=== PATIENT | male | born 1980 | race Hispanic/Latino ===

== ENCOUNTER 2019-03-30 11:38 | Emergency (ER) | payer SELFPAY ==
[2019-03-30 11:44] VITALS: BP 123/84; PULSE 75; RESP 20; TEMP 36.6; O2SAT 100; BMI 27.1
[2019-03-30 13:30] VITALS: BP 99/69; PULSE 67; RESP 15; O2SAT 100
--- NOTE | 2019-03-30 13:49 | ED.MALEGU ---
HPI - Male Genitourinary General Chief complaint: Urogenital-Male Stated complaint: ABDOMINAL PAIN AND FREQUENT URINATION Time Seen by Provider: 03/30/19 13:49 Source: patient Mode of arrival: ambulatory Limitations: no limitations History of Present Illness HPI Narrative: This is a 39-year-old male comes in with complaint of abdominal pain, penile pain and testicular pain is been going on off for 18 years. Patient states that he has a little bit of flank pain. It also runs up to his chest sometimes. He states he of times he feels little fevers or chills. He has had nausea this morning. He made himself throw up once and it was yellow in coloration. He has had normal bowel movements. No black or bloody stools. He has had some dysuria urgency and frequency with small amounts. Patient states that he has had a little bit a rash. He has been STDs within the last month and told he had genital herpes. I states everything else was negative. He has had CT scans as well as colonoscopy and cystoscopy at least twice in the last 18 years which were negative. The most recent were about for 5 years ago. Patient states that the pain is always present but is a little bit worse recently. Most recently he was seen at to counts include [facility] beds at the [facility] for similar symptoms. He denies other medical problems. He is not currently on medications. He states he used to drink alcohol excessively but quick about 6 years ago. He does smoke marijuana. He denies any tobacco. Patient has history of radha in his left femur, surgical repair of his left forearm and states that he had fractures to his back in the past. Related Data Previous Rx's Medication Instructions Recorded ketoconazole 1 applictn TOP BID #15 gram 03/30/19 Review of Systems Review of Systems ROS Unobtainable: All systems reviewed & are unremarkable except as noted in HPI and below Constitutional Denies chills and Denies fever(s) Cardiovascular Denies chest pain and Denies dyspnea Respiratory Denies chest congestion, Denies cough, Denies dyspnea and Denies wheezing Gastrointestinal Gastrointestinal: Denies abdominal pain, Denies change in bowel habits, Denies constipation, Denies heartburn, Denies diarrhea, Reports nausea and Reports vomiting (x1, made himself throw up.) Genitourinary Denies as per HPI, Denies hematuria, Reports difficulty urinating, Reports genital pain, Reports dysuria, Denies flank pain, Denies penile discharge, Denies scrotal swelling, Denies testicular mass, Reports testicular pain, Reports urinary frequency, Denies urinary hesitancy, Denies urinary incontinence and Reports urinary urgency Musculoskeletal Denies back pain Integumentary/Breasts Reports erythema (testicles, end of penis) Allergic/Immunologic Denies wheezing PFSH Social History Smoking Status: Never smoker Social History (Updated 03/30/19 @ 14:05 by Corrine Valdivia DO) Smoking Status: Never smoker alcohol intake: former substance use type: marijuana Exam Narrative Exam Narrative: GEN: well nourished, well appearing male, alert and oriented x 3, patient appears to be in mild distress. HEENT: Atraumatic, pupils are equal round reactive to light, extraocular movements are intact, nares are clear. HEART: Regular rate and rhythm without murmur, clicks, rubs. LUNGS:Lungs clear to auscultation, no wheezes, rales, crackles, chest moves symmetrically ABD:bowel sounds normal, soft, non-tender, no guarding, rebound, rigidity, no masses noted, no hepatosplenomegaly :No CVA tenderness, Male: normal external examination except for a little bit of ulceration at the opening of the urethra, testicles are slightly erythematous, no penile discharge or lesions, testicles non-tender, cremasteric reflex intact, no inguinal hernias noted. MSCL: Non-tender, no muscle atrophy, normal range of motion. Normal gait. NEURO:CN 2-12 intact, sensation normal Initial Vital Signs Initial Vital Signs: Vital Signs Temperature 97.9 F 03/30/19 11:44 Pulse Rate 75 03/30/19 11:44 Respiratory Rate 20 03/30/19 11:44 Blood Pressure 123/84 03/30/19 11:44 Pulse Oximetry 100 03/30/19 11:44 Course Orders Ordered: ED Orders 03/30/19 13:00 Urinalysis and Microscopic Stat 03/30/19 13:30 Complete Blood Count AUTO DIFF Stat Comprehensive Metabolic Panel Stat Lipase Stat Partial Thromboplastin Time Stat Prothrombin Time INR Stat 03/30/19 13:59 US abdomen complete Stat 03/30/19 14:53 EKG-12 Lead Stat Vital Signs - 8 hr 03/30/19 11:44 03/30/19 13:30 03/30/19 14:33 Temperature 97.9 F Pulse Rate 75 67 60 Respiratory Rate 20 15 16 Blood Pressure 123/84 Blood Pressure [Right Arm] 99/69 99/70 Pulse Oximetry 100 100 99 MDM - Male Genitourinary Lab Data Attestation: I reviewed the patient's lab results. Result diagrams: 03/30/19 13:30 03/30/19 13:30 Lab Results 03/30/19 03/30/19 03/30/19 Range/Units 13:00 13:30 13:30 WBC 5.8 (4.5-11.0) X10^3/uL RBC 5.28 (4.5-5.9) X10^6/uL Hgb 15.8 (13.5-17.5) g/dL Hct 46.0 (41-53) % MCV 87.0 (80-100) fL MCH 30.0 (26-34) PG MCHC 34.5 (30-36) % RDW 13.4 (11.6-14.8) % Plt Count 244 (150-400) X10^3/uL Neut % (Auto) 51.1 (50-75) % Lymph % (Auto) 39.0 (25-40) % [place] % (Auto) 7.4 (3-14) % Eos % (Auto) 1.6 L (2-4) % Baso % (Auto) 0.9 (0-2) % Neut # (Auto) 3000 (9450-6707) /uL Lymph # (Auto) 2300 (4752-6132) /uL [place] # (Auto) 400 (0-900) /uL Eos # (Auto) 100 (0-450) /uL Baso # (Auto) 100 (0-100) /uL PT 11.5 (10.1-12.7) SECONDS INR 1.0 (0.9-1.3) APTT 29 (26.4-36.2) SECONDS Sodium (137-145) mmol/L Potassium (3.4-5.1) mmol/L Chloride (98-107) mmol/L Carbon Dioxide (22-32) mmol/L BUN (9-20) mg/dL Creatinine (0.66-1.25) mg/dL Estimated GFR (>60) mL/min BUN/Creatinine Ratio (6-22) Glucose (70-100) mg/dL Calcium (8.4-10.2) mg/dL Total Bilirubin (0.2-1.3) mg/dL AST (17-59) IU/L ALT (21-72) IU/L Alkaline Phosphatase (38-126) U/L Total Protein (6.3-8.2) g/dL Albumin (3.5-5.0) g/dL Globulin (1.7-4.1) g/dL Albumin/Globulin Ratio (1.0-2.8) Lipase (23-300) U/L Urine Color Yellow Urine Appearance Clear Urine pH 7.5 (4.5-8.0) Ur Specific [place] 1.015 (1.000-1.035) Urine Protein Negative (Negative) Urine Glucose (UA) Negative (Negative) g/dL Urine Ketones Negative (NEGATIVE) Urine Occult Blood Negative (Negative) Urine Nitrate Negative (Negative) Urine Bilirubin Negative (NEGATIVE) Urine Urobilinogen 0.2 (0.2) E.U./dL Ur Leukocyte Esterase Negative (NEGATIVE) Urine RBC None seen (0-5/HPF) Urine WBC None seen (0-5/HPF) Urine Bacteria None seen (None) Ur Culture Indicated? Cult not indicated Micro UA Comment Microscopic normal 03/30/19 Range/Units 13:30 WBC (4.5-11.0) X10^3/uL RBC (4.5-5.9) X10^6/uL Hgb (13.5-17.5) g/dL Hct (41-53) % MCV (80-100) fL MCH (26-34) PG MCHC (30-36) % RDW (11.6-14.8) % Plt Count (150-400) X10^3/uL Neut % (Auto) (50-75) % Lymph % (Auto) (25-40) % [place] % (Auto) (3-14) % Eos % (Auto) (2-4) % Baso % (Auto) (0-2) % Neut # (Auto) (8811-1123) /uL Lymph # (Auto) (4211-8469) /uL [place] # (Auto) (0-900) /uL Eos # (Auto) (0-450) /uL Baso # (Auto) (0-100) /uL PT (10.1-12.7) SECONDS INR (0.9-1.3) APTT (26.4-36.2) SECONDS Sodium 142 (137-145) mmol/L Potassium 3.8 (3.4-5.1) mmol/L Chloride 107 (98-107) mmol/L Carbon Dioxide 25 (22-32) mmol/L BUN 13 (9-20) mg/dL Creatinine 0.70 (0.66-1.25) mg/dL Estimated GFR > 60.0 (>60) mL/min BUN/Creatinine Ratio 18.6 (6-22) Glucose 87 (70-100) mg/dL Calcium 9.4 (8.4-10.2) mg/dL Total Bilirubin 1.1 (0.2-1.3) mg/dL AST 37 (17-59) IU/L ALT 24 (21-72) IU/L Alkaline Phosphatase 50 (38-126) U/L Total Protein 7.6 (6.3-8.2) g/dL Albumin 4.6 (3.5-5.0) g/dL Globulin 3.0 (1.7-4.1) g/dL Albumin/Globulin Ratio 1.5 (1.0-2.8) Lipase 54 (23-300) U/L Urine Color Urine Appearance Urine pH (4.5-8.0) Ur Specific [place] (1.000-1.035) Urine Protein (Negative) Urine Glucose (UA) (Negative) g/dL Urine Ketones (NEGATIVE) Urine Occult Blood (Negative) Urine Nitrate (Negative) Urine Bilirubin (NEGATIVE) Urine Urobilinogen (0.2) E.U./dL Ur Leukocyte Esterase (NEGATIVE) Urine RBC (0-5/HPF) Urine WBC (0-5/HPF) Urine Bacteria (None) Ur Culture Indicated? Micro UA Comment Imaging Data US - abdomen: Radiologist's impression: [address] [address] Ultrasound Report Signed Patient: Stevie Guillen LMR#: [id number] : 1980Acct:[id number] Age/Sex: 39 / MDate of Service: 03/30/19 Loc: ED Accession Number: [id number] Procedure: US abdomen complete Ordering Provider: Corrine Valdivia D.O. PROCEDURE: US ABDOMEN COMPLETE INDICATIONS: ABDOMINAL PAIN X 18YEARS, DYSURIA, PENILE PAIN TECHNIQUE: Real-time scanning was performed of the abdominal and retroperitoneal organs, with image documentation. COMPARISON: [facility], CT, ABDOMEN/PELVIS WITH CONTRAST, 07/31/2015, 10:37. FINDINGS: Liver: Liver is normal in size and homogeneous in echotexture. A hyperdense nodule seen involving the right liver, which is mildly hyperdense and measures 9 mm. Gallbladder: No findings of gallstones or sludge are seen. The gallbladder wall is not thickened, measuring 3 mm or less. There is a likely polyp at the fundus of the gallbladder that measures 9 mm. No specific pericholecystic fluid is seen. The sonographic Ahuja sign is negative. Biliary ducts: Intrahepatic bile ducts are non-dilated. Extrahepatic bile duct caliber measures 6 mm. Normal is 6-7 mm or less in diameter, or 10 mm or less post-cholecystectomy. Pancreas: The pancreas is not well-seen. Spleen: Spleen is normal in size and homogeneous in echotexture. Kidneys: Kidneys are normal in size and echotexture. Right kidney measures 11.3 cm long; left kidney measures 11.3 cm long. No hydronephrosis or nephrolithiasis. No solid masses. Aorta: Visualized aorta is normal in caliber at less than 3 cm. Iliacs: Proximal common iliac arteries are normal in caliber at less than 2.5 cm. IVC: Intrahepatic inferior vena cava is patent. Miscellaneous: No free abdominal fluid. Additional, dedicated ultrasound scanning is performed at the area of pain involving the lower abdomen. No focal ultrasound abnormalities are seen within this region. IMPRESSION: No imaging explanation is found for this patient's presenting symptoms. Incidental note is made of: Likely 9 mm liver hemangioma. Likely gallbladder wall polyp Dictated by: Nikita Newton M.D. on 03/30/2019 at 15:22 Approved by: Nikita Newton M.D. on 03/30/2019 at 15:24 ECG Data Attestation: I personally reviewed and interpreted this ECG as follows: Interpretation: Sinus bradycardia rate of 53 P are 177 QRS of 124 QRS of 392. No ST elevation or depression appreciated. MDM Narrative Medical decision making narrative: Patient has complaint of acute on chronic symptoms. He does have little ulceration at the tip of the penis and I suspect this is causes his dysuria. I would put him on a topical treatment for the short term. Lab work shows no acute process, urinalysis is negative and ultrasound show no acute process. No acute process appreciated. Patient has had multiple workups for his abdominal pain in the past. Will treat his balanitis and have patient follow up with PCP. Discharge Plan Departure Patient Disposition: Home Clinical Impression: Balanitis, Abdominal pain Discharge Date/Time: 03/30/19 17:16 Interventions: ED Discharge Assessment Last Done: 03/30/19 17:15 Instructions: DI for Balanitis Activity Restrictions/Additional Instructions: Follow-up with primary care in the next week for recheck. Use topical ointment to the affected area twice daily x1 week. If her symptoms have not resolved follow-up with primary care for recheck. Return to the emergency department for fevers, persistent vomiting, passing out, rapidly worsening pain, black or bloody stools, inability urinate or other new or concerning symptoms. Prescriptions: New ketoconazole 2 % cream 1 applictn TOP BID Qty: 15 RF: 0
[2019-03-30 13:52] LABS: Prothrombin Time 11.5 SECONDS (10.1-12.7)
[2019-03-30 13:54] LABS: PTT Partial Thromboplastin Tim 29 SECONDS (26.4-36.2)
[2019-03-30 13:57] LABS: Alanine Aminotransferase 24 IU/L (21-72); Albumin 4.6 g/dL (3.5-5.0); Albumin Globulin Ratio 1.5 (1.0-2.8); Alkaline Phosphatase 50 U/L (38-126); Aspartate Aminotransferase 37 IU/L (17-59); BUN Creatinine Ratio 18.6 (6-22); Bilirubin Total 1.1 mg/dL (0.2-1.3); Blood Urea Nitrogen 13 mg/dL (9-20); Calcium 9.4 mg/dL (8.4-10.2); Carbon Dioxide 25 mmol/L (22-32); Chloride 107 mmol/L (98-107); Estimated Glomerular Filt Rate > 60.0 mL/min (>60); Glucose 87 mg/dL (70-100); HEMOLYSIS 43 (0-50); Lipase 54 U/L (23-300); Potassium 3.8 mmol/L (3.4-5.1); Sodium 142 mmol/L (137-145); Total Protein 7.6 g/dL (6.3-8.2)
--- NOTE | 2019-03-30 13:59 | DI.US.S_ITS ---
PROCEDURE: US ABDOMEN COMPLETE INDICATIONS: ABDOMINAL PAIN X 18YEARS, DYSURIA, PENILE PAIN TECHNIQUE: Real-time scanning was performed of the abdominal and retroperitoneal organs, with image documentation. COMPARISON: [facility], CT, ABDOMEN/PELVIS WITH CONTRAST, 07/31/2015, 10:37. FINDINGS: Liver: Liver is normal in size and homogeneous in echotexture. A hyperdense nodule seen involving the right liver, which is mildly hyperdense and measures 9 mm. Gallbladder: No findings of gallstones or sludge are seen. The gallbladder wall is not thickened, measuring 3 mm or less. There is a likely polyp at the fundus of the gallbladder that measures 9 mm. No specific pericholecystic fluid is seen. The sonographic Ahuja sign is negative. Biliary ducts: Intrahepatic bile ducts are non-dilated. Extrahepatic bile duct caliber measures 6 mm. Normal is 6-7 mm or less in diameter, or 10 mm or less post-cholecystectomy. Pancreas: The pancreas is not well-seen. Spleen: Spleen is normal in size and homogeneous in echotexture. Kidneys: Kidneys are normal in size and echotexture. Right kidney measures 11.3 cm long; left kidney measures 11.3 cm long. No hydronephrosis or nephrolithiasis. No solid masses. Aorta: Visualized aorta is normal in caliber at less than 3 cm. Iliacs: Proximal common iliac arteries are normal in caliber at less than 2.5 cm. IVC: Intrahepatic inferior vena cava is patent. Miscellaneous: No free abdominal fluid. Additional, dedicated ultrasound scanning is performed at the area of pain involving the lower abdomen. No focal ultrasound abnormalities are seen within this region. IMPRESSION: No imaging explanation is found for this patient's presenting symptoms. Incidental note is made of: Likely 9 mm liver hemangioma. Likely gallbladder wall polyp Dictated by: Nikita Newton M.D. on 03/30/2019 at 15:22 Approved by: Nikita Newton M.D. on 03/30/2019 at 15:24
[2019-03-30 14:00] LABS: Add Manual Diff / Slide Review NO; Basophils Absolute Auto 100 /uL (0-100); Basophils Percent Auto 0.9 % (0-2); Eosinophils Absolute Auto 100 /uL (0-450); Eosinophils Percent Auto 1.6 % (2-4); Hemoglobin 15.8 g/dL (13.5-17.5); Lymphocytes Absolute Auto 2300 /uL (1100-4500); Mean Corpuscular HGB Conc 34.5 % (30-36); Monocytes Absolute Auto 400 /uL (0-900); Monocytes Percent Auto 7.4 % (3-14); Neutrophils Absolute Auto 3000 /uL (1500-7000); Neutrophils Percent Auto 51.1 % (50-75); Platelet Count 244 X10^3/uL (150-400); Red Blood Cell Count 5.28 X10^6/uL (4.5-5.9); Red Cell Distribution Width 13.4 % (11.6-14.8); White Blood Cell Count 5.8 X10^3/uL (4.5-11.0)
--- NOTE | 2019-03-30 14:03 | ED_ITS ---
HPI - Male Genitourinary General Chief complaint: Urogenital-Male Stated complaint: ABDOMINAL PAIN AND FREQUENT URINATION Time Seen by Provider: 03/30/19 13:49 Source: patient Mode of arrival: ambulatory Limitations: no limitations History of Present Illness HPI Narrative: This is a 39-year-old male comes in with complaint of abdominal pain, penile pain and testicular pain is been going on off for 18 years. Patie nt states that he has a little bit of flank pain. It also runs up to his chest sometimes. He states he of times he feels little fevers or chills. He has had nausea this morning. He made himself throw up once and it was yellow in coloration. He has had normal bowel movements. No black or bloody stools. He has had some dysuria urgency and frequency with small amounts. Patient states that he has had a little bit a rash. He has been STDs within the last month and told he had genital herpes. I states everything else was negative. He has had CT scans as well as colonoscopy and cystoscopy at least twice in the last 18 years which were negative. The most recent were about for 5 years ago. Patient states that the pain is always present but is a little bit worse recently. Most recently he was seen at to feel for similar symptoms. He denies other medical problems. He is not currently on medications. He states he used to drink alcohol excessively but quick about 6 years ago. He does smoke marijuana. He denies any tobacco. Patient has history of radha in his left femur, surgical repair of his left forearm and states that he had fractures to his back in the past. Related Data Previous Rx's Medication Instructions Recorded ketoconazole 1 applictn TOP BID #15 gram 03/30/19 Review of Systems Review of Systems ROS Unobtainable: All systems reviewed & are unremarkable except as noted in HPI and below Constitutional Denies chills and Denies fever(s) Cardiovascular Denies chest pain and Denies dyspnea Respiratory Denies chest congestion, Denies cough, Denies dyspnea and Denies wheezing Gastrointestinal Gastrointestinal: Denies abdominal pain, Denies change in bowel habits, Denies constipation, Denies heartburn, Denies diarrhea, Reports nausea and Reports vomiting (x1, made himself throw up.) Genitourinary Denies as per HPI, Denies hematuria, Reports difficulty urinating, Reports genital pain, Reports dysuria, Denies flank pain, Denies penile discharge, Denies scrotal swelling, Denies testicular mass, Reports testicular pain, Reports urinary frequency, Denies urinary hesitancy, Denies urinary incontinence and Reports urinary urgency Musculoskeletal Denies back pain Integumentary/Breasts Reports erythema (testicles, end of penis) Allergic/Immunologic Denies wheezing PFSH Social History Smoking Status: Never smoker Social History (Updated 03/30/19 @ 14:05 by Corrine Valdivia DO) Smoking Status: Never smoker alcohol intake: former substance use type: marijuana Exam Narrative Exam Narrative: GEN: well nourished, well appearing male, alert and oriented x 3, patient appears to be in mild distress. HEENT: Atraumatic, pupils are equal round reactive to light, extraocular movements are intact, nares are clear. HEART: Regular rate and rhythm without murmur, clicks, rubs. LUNGS:Lungs clear to auscultation, no wheezes, rales, crackles, chest moves symmetrically ABD:bowel sounds normal, soft, non-tender, no guarding, rebound, rigidity, no masses noted, no hepatosplenomegaly :No CVA tenderness, Male: normal external examination except for a little bit of ulceration at the opening of the urethra, testicles are slightly erythematous, no penile discharge or lesions, testicles non-tender, cremasteric reflex intact, no inguinal hernias noted. MSCL: Non-tender, no muscle atrophy, normal range of motion. Normal gait. NEURO:CN 2-12 intact, sensation normal Initial Vital Signs Initial Vital Signs: Vital Signs Temperature 97.9 F 03/30/19 11:44 Pulse Rate 75 03/30/19 11:44 Respiratory Rate 20 03/30/19 11:44 Blood Pressure 123/84 03/30/19 11:44 Pulse Oximetry 100 03/30/19 11:44 Course Orders Ordered: ED Orders 03/30/19 13:00 Urinalysis and Microscopic Stat 03/30/19 13:30 Complete Blood Count AUTO DIFF Stat Comprehensive Metabolic Panel Stat Lipase Stat Partial Thromboplastin Time Stat Prothrombin Time INR Stat 03/30/19 13:59 US abdomen complete Stat 03/30/19 14:53 EKG-12 Lead Stat Vital Signs - 8 hr 03/30/19 11:44 03/30/19 13:30 03/30/19 14:33 Temperature 97.9 F Pulse Rate 75 67 60 Respiratory Rate 20 15 16 Blood Pressure 123/84 Blood Pressure [Right Arm] 99/69 99/70 Pulse Oximetry 100 100 99 MDM - Male Genitourinary Lab Data Attestation: I reviewed the patient's lab results. Result diagrams: 03/30/19 13:30 03/30/19 13:30 Lab Results 03/30/19 03/30/19 03/30/19 Range/Units 13:00 13:30 13:30 WBC 5.8 (4.5-11.0) X10^3/uL RBC 5.28 (4.5-5.9) X10^6/uL Hgb 15.8 (13.5-17.5) g/dL Hct 46.0 (41-53) % MCV 87.0 (80-100) fL MCH 30.0 (26-34) PG MCHC 34.5 (30-36) % RDW 13.4 (11.6-14.8) % Plt Count 244 (150-400) X10^3/uL Neut % (Auto) 51.1 (50-75) % Lymph % (Auto) 39.0 (25-40) % [place] % (Auto) 7.4 (3-14) % Eos % (Auto) 1.6 L (2-4) % Baso % (Auto) 0.9 (0-2) % Neut # (Auto) 3000 (1252-3288) /uL Lymph # (Auto) 2300 (8509-8145) /uL [place] # (Auto) 400 (0-900) /uL Eos # (Auto) 100 (0-450) /uL Baso # (Auto) 100 (0-100) /uL PT 11.5 (10.1-12.7) SECONDS INR 1.0 (0.9-1.3) APTT 29 (26.4-36.2) SECONDS Sodium (137-145) mmol/L Potassium (3.4-5.1) mmol/L Chloride (98-107) mmol/L Carbon Dioxide (22-32) mmol/L BUN (9-20) mg/dL Creatinine (0.66-1.25) mg/dL Estimated GFR (>60) mL/min BUN/Creatinine Ratio (6-22) Glucose (70-100) mg/dL Calcium (8.4-10.2) mg/dL Total Bilirubin (0.2-1.3) mg/dL AST (17-59) IU/L ALT (21-72) IU/L Alkaline Phosphatase (38-126) U/L Total Protein (6.3-8.2) g/dL Albumin (3.5-5.0) g/dL Globulin (1.7-4.1) g/dL Albumin/Globulin Ratio (1.0-2.8) Lipase (23-300) U/L Urine Color Yellow Urine Appearance Clear Urine pH 7.5 (4.5-8.0) Ur Specific [place] 1.015 (1.000-1.035) Urine Protein Negative (Negative) Urine Glucose (UA) Negative (Negative) g/dL Urine Ketones Negative (NEGATIVE) Urine Occult Blood Negative (Negative) Urine Nitrate Negative (Negative) Urine Bilirubin Negative (NEGATIVE) Urine Urobilinogen 0.2 (0.2) E.U./dL Ur Leukocyte Esterase Negative (NEGATIVE) Urine RBC None seen (0-5/HPF) Urine WBC None seen (0-5/HPF) Urine Bacteria None seen (None) Ur Culture Indicated? Cult not indicated Micro UA Comment Microscopic normal 03/30/19 Range/Units 13:30 WBC (4.5-11.0) X10^3/uL RBC (4.5-5.9) X10^6/uL Hgb (13.5-17.5) g/dL Hct (41-53) % MCV (80-100) fL MCH (26-34) PG MCHC (30-36) % RDW (11.6-14.8) % Plt Count (150-400) X10^3/uL Neut % (Auto) (50-75) % Lymph % (Auto) (25-40) % [place] % (Auto) (3-14) % Eos % (Auto) (2-4) % Baso % (Auto) (0-2) % Neut # (Auto) (4729-7877) /uL Lymph # (Auto) (7466-4504) /uL [place] # (Auto) (0-900) /uL Eos # (Auto) (0-450) /uL Baso # (Auto) (0-100) /uL PT (10.1-12.7) SECONDS INR (0.9-1.3) APTT (26.4-36.2) SECONDS Sodium 142 (137-145) mmol/L Potassium 3.8 (3.4-5.1) mmol/L Chloride 107 (98-107) mmol/L Carbon Dioxide 25 (22-32) mmol/L BUN 13 (9-20) mg/dL Creatinine 0.70 (0.66-1.25) mg/dL Estimated GFR > 60.0 (>60) mL/min BUN/Creatinine Ratio 18.6 (6-22) Glucose 87 (70-100) mg/dL Calcium 9.4 (8.4-10.2) mg/dL Total Bilirubin 1.1 (0.2-1.3) mg/dL AST 37 (17-59) IU/L ALT 24 (21-72) IU/L Alkaline Phosphatase 50 (38-126) U/L Total Protein 7.6 (6.3-8.2) g/dL Albumin 4.6 (3.5-5.0) g/dL Globulin 3.0 (1.7-4.1) g/dL Albumin/Globulin Ratio 1.5 (1.0-2.8) Lipase 54 (23-300) U/L Urine Color Urine Appearance Urine pH (4.5-8.0) Ur Specific [place] (1.000-1.035) Urine Protein (Negative) Urine Glucose (UA) (Negative) g/dL Urine Ketones (NEGATIVE) Urine Occult Blood (Negative) Urine Nitrate (Negative) Urine Bilirubin (NEGATIVE) Urine Urobilinogen (0.2) E.U./dL Ur Leukocyte Esterase (NEGATIVE) Urine RBC (0-5/HPF) Urine WBC (0-5/HPF) Urine Bacteria (None) Ur Culture Indicated? Micro UA Comment Imaging Data US - abdomen: Radiologist's impression: [address] [address] Ultrasound Report Signed Patient: Stevie Guillen LMR#: [id number] : 1980Acct:[id number] Age/Sex: 39 / MDate of Service: 03/30/19 Loc: ED Accession Number: [id number] Procedure: US abdomen complete Ordering Provider: Corrine Valdivia D.O. PROCEDURE: US ABDOMEN COMPLETE INDICATIONS: ABDOMINAL PAIN X 18YEARS, DYSURIA, PENILE PAIN TECHNIQUE: Real-time scanning was performed of the abdominal and retroperitoneal organs, with image documentation. COMPARISON: [facility], CT, ABDOMEN/PELVIS WITH CONTRAST, 07/31/2015, 10:37. FINDINGS: Liver: Liver is normal in size and homogeneous in echotexture. A hyperdense nodule seen involving the right liver, which is mildly hyperdense and measures 9 mm. Gallbladder: No findings of gallstones or sludge are seen. The gallbladder wall is not thickened, measuring 3 mm or less. There is a likely polyp at the fundus of the gallbladder that measures 9 mm. No specific pericholecystic fluid is seen. The sonographic Ahuja sign is negative. Biliary ducts: Intrahepatic bile ducts are non-dilated. Extrahepatic bile duct caliber measures 6 mm. Normal is 6-7 mm or less in diameter, or 10 mm or less post-cholecystectomy. Pancreas: The pancreas is not well-seen. Spleen: Spleen is normal in size and homogeneous in echotexture. Kidneys: Kidneys are normal in size and echotexture. Right kidney measures 11.3 cm long; left kidney measures 11.3 cm long. No hydronephrosis or nephrolithiasis. No solid masses. Aorta: Visualized aorta is normal in caliber at less than 3 cm. Iliacs: Proximal common iliac arteries are normal in caliber at less than 2.5 cm. IVC: Intrahepatic inferior vena cava is patent. Miscellaneous: No free abdominal fluid. Additional, dedicated ultrasound scanning is performed at the area of pain involving the lower abdomen. No focal ultrasound abnormalities are seen within this region. IMPRESSION: No imaging explanation is found for this patient's presenting symptoms. Incidental note is made of: Likely 9 mm liver hemangioma. Likely gallbladder wall polyp Dictated by: Nikita Newton M.D. on 03/30/2019 at 15:22 Approved by: Nikita Newton M.D. on 03/30/2019 at 15:24 ECG Data Attestation: I personally reviewed and interpreted this ECG as follows: Interpretation: Sinus bradycardia rate of 53 P are 177 QRS of 124 QRS of 392. No ST elevation or depression appreciated. MDM Narrative Medical decision making narrative: Patient has complaint of acute on chronic symptoms. He does have little ulceration at the tip of the penis and I suspect this is causes his dysuria. I would put him on a topical treatment for the short term. Lab work shows no acute process, urinalysis is negative and ultrasound show no acute process. No acute process appreciated. Patient has had multiple workups for his abdominal pain in the past. Will treat his balanitis and have patient follow up with PCP. Discharge Plan Departure Patient Disposition: Home Clinical Impression: Balanitis, Abdominal pain Discharge Date/Time: 03/30/19 17:16 Interventions: ED Discharge Assessment Last Done: 03/30/19 17:15 Instructions: DI for Balanitis Activity Restrictions/Additional Instructions: Follow-up with primary care in the next week for recheck. Use topical ointment to the affected area twice daily x1 week. If her symptoms have not resolved follow-up with primary care for recheck. Return to the emergency department for fevers, persistent vomiting, passing out, rapidly worsening pain, black or bloody stools, inability urinate or other new or concerning symptoms. Prescriptions: New ketoconazole 2 % cream 1 applictn TOP BID Qty: 15 RF: 0
[2019-03-30 14:04] LABS: Bacteria Urine None Seen; RBC Urine None Seen (0-5/HPF); WBC Urine None Seen (0-5/HPF)
[2019-03-30 14:05] LABS: Appearance Urine UA CLEAR; Bilirubin Urine UA NEGATIVE (NEGATIVE); Color Urine UA YELLOW; Glucose Urine UA NEGATIVE (Negative); Ketones Urine UA NEGATIVE (NEGATIVE); Leukocyte Esterase Urine UA NEGATIVE (NEGATIVE); Nitrite Urine UA NEGATIVE (Negative); Occult Blood Urine UA NEGATIVE (Negative); Protein Urine UA NEGATIVE (Negative); Specific Gravity Urine UA 1.015 (1.000-1.035); Urobilinogen Urine UA 0.2 E.U./dL (0.2); pH Urine UA 7.5 (4.5-8.0)
[2019-03-30 14:12] LABS: Culture Indicated Urine Cult Not Indicated; Urine Comments Microscopic Normal
[2019-03-30 14:33] VITALS: BP 99/70; PULSE 60; RESP 16; O2SAT 99
== END 2019-03-30 17:16 | disposition home or self-care (01) ==
PROVIDERS: Emergency Provider Emergency Medicine
DX: N48.1 Balanitis (principal); R10.9 Unspecified abdominal pain; R07.9 Chest pain, unspecified
CPT/HCPCS: 36591; 76700; 80053; 81001; 83690; 85025; 85610; 85730; 93005; 99282; 99285

== ENCOUNTER 2020-04-27 13:17 | Emergency (ER) | payer OTHER, MEDICAID, SELFPAY ==
[2020-04-27 13:21] VITALS: BP 139/95; PULSE 79; RESP 16; TEMP 36.7; O2SAT 97; BMI 26.3
--- NOTE | 2020-04-27 13:49 | DI.US.S_ITS ---
PROCEDURE: US SCROTUM INDICATIONS: LEFT TESTICULAR PAIN X 3 DAYS; 2 WEEKS POST HERNIA SURGERY TECHNIQUE: Real-time scanning was performed of the scrotum and testicles, with image documentation. Color and pulse Doppler interrogation was performed of both testicles. COMPARISON: None. FINDINGS: Right: Testicle is normal in size at 4.3 x 2.2 x 3.1 cm, and homogenous in echotexture. Epididymis is normal in overall size and morphology. No hydrocele or varicoceles. Overlying scrotal skin is normal in thickness. Left: Testicle is normal in size at 4.5 x 2.3 x 3.5 cm, and homogeneous in echotexture. Epididymis is normal in overall size and morphology. No hydrocele or varicoceles. Overlying scrotal skin is normal in thickness. Doppler: Color and pulse Doppler demonstrate normal and symmetric arterial flow in both testicles. IMPRESSION: 1. Normal testicular ultrasound. No findings to suggest testicular torsion or mass. 2. Normal ultrasound appearance of epididymis. Dictated by: Felicia Costello M.D. on 04/27/2020 at 14:59 Approved by: Felicia Costello M.D. on 04/27/2020 at 15:01
[2020-04-27 15:52] LABS: Bacteria Urine None Seen; RBC Urine None Seen (0-5/HPF); WBC Urine None Seen (0-5/HPF)
[2020-04-27 15:53] LABS: Appearance Urine UA CLEAR; Bilirubin Urine UA NEGATIVE (NEGATIVE); Color Urine UA YELLOW; Glucose Urine UA NEGATIVE (Negative); Ketones Urine UA NEGATIVE (NEGATIVE); Leukocyte Esterase Urine UA NEGATIVE (NEGATIVE); Nitrite Urine UA NEGATIVE (Negative); Occult Blood Urine UA NEGATIVE (Negative); Protein Urine UA NEGATIVE (Negative); Specific Gravity Urine UA <=1.005 (1.000-1.035); Urobilinogen Urine UA 0.2 E.U./dL (0.2)
[2020-04-27 16:04] LABS: Amorphous Sediment Urine 1+; Culture Indicated Urine Cult Not Indicated
[2020-04-27 17:20] LABS: Urine N gonorrhoeae NOT DETECTED
[2020-04-27 17:43] LABS: Urine Chlamydia NOT DETECTED
--- NOTE | 2020-04-27 23:06 | ED.MALEGU ---
HPI - Male Genitourinary <OSVALDO Luciano - Last Filed: 04/27/20 23:20> General Chief complaint: Urogenital-Male Stated complaint: testicle pain/red/one hanging really bad Time Seen by Provider: 04/27/20 15:22 Source: patient Mode of arrival: Ambulatory Limitations: no limitations History of Present Illness HPI Narrative: This is a 40-year-old male, nonsmoker, who has history of recent inguinal hernia repair at presents to ED with intermittent severe bilateral testicular swelling, discomfort and redness. Patient reports similar symptoms have been ongoing since 2002 and he has been evaluated by several urologist in the past including at [facility], [facility] urologist, [facility] urologist, and at [facility] urologist w/o significant findings and was told once his symptoms are due to psoriasis. Patient is currently waiting for workers compensation analyst evaluation mid next month and urologist appointment on 05/13/20 patient denies urinary symptoms and denies purulent or abnormal penile discharge. 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 He is currently taking antiviral medication for suppressant treatment. Patient reports he is not currently sexually active but at times when he has ejaculation his semen appears to somewhat more yellow. Patient denies fever, chills, nausea or vomiting. Patient denies urinary symptoms such as dysuria, burning sensation but reports frequent urination and has to push or strain to void. Patient reports was reported for gonorrhea at age 11. Patient has been taking Tylenol and Motrin for discomfort without much improvement but jock strap has been helpful. Related Data Home Medications Medication Instructions Recorded Confirmed fluconazole 150 mg tablet 150 mg PO DAILY 12/05/19 12/05/19 omeprazole PO 12/05/19 12/05/19 tamsulosin PO 12/05/19 12/05/19 valacyclovir PO 12/05/19 12/05/19 Previous Rx's Medication Instructions Recorded hydrocodone-acetaminophen [[place]] 1 tab PO BID PRN #5 tab 04/27/20 Allergies Allergy/AdvReac Type Severity Reaction Status Date / Time Iodinated Contrast Media AdvReac Severe vomiting Verified 12/05/19 11:05 Review of Systems <OSVALDO Luciano - Last Filed: 04/27/20 23:20> Review of Systems Narrative: General: Denies fever, chills, fatigue, malaise, sweats. HEENT: Denies sinus pain, ear pain, sore throat, difficulty swallowing, dizziness. Respiratory: Denies dyspnea, cough, wheezing, hemoptysis, sputum. Cardiovascular: Denies chest pain, palpitations, orthopnea, edema. Gastrointestinal: Denies nausea, vomiting, abdominal pain, diarrhea, constipation, melena. : See HPI Musculoskeletal: Denies weakness, joint pain or bony pain. Skin: Denies rash, skin lesions, or other. Neurologic: Denies weakness, headache, numbness, change in speech, confusion, seizures, incoordination. Psychiatric: No concerning psychosocial issues. 12-point review of systems is negative except for those stated above. Patient History <OSVALDO Luciano - Last Filed: 04/27/20 23:20> Surgical History H/O inguinal hernia repair (Acute) Social History Smoking Status: Never smoker alcohol intake: former substance use type: marijuana Smoking Status: Never smoker alcohol intake frequency: other Substance Use Type: marijuana Exam <OSVALDO Luciano - Last Filed: 04/27/20 23:20> Narrative Exam Narrative: GEN: Alert, oriented x 3, well appearing and nourished, and in no acute distress. Head: Normal cephalic, atraumatic. No scalp or temporal tenderness, palpable mass or rash. EYES: Pupils are equal, round, and reactive to light and accommodation. Extraocular muscles are intact bilaterally. There is no subconjunctival hemorrhage, exudate and sclera non-icteric. ENT: Hearing grossly intact. Nose without bleeding, purulent discharge or deviation. Mucous membrane moist, no mucosal lesion. Throat without erythema, tonsillar hypertrophy or exudate. Uvula in midline, airway patent. Neck: Trachea in midline. No JVD, non-tender without lymphadenopathy. No masses or thyroid megaly. Supple, non-tender and no meningeal signs. CARDIAC: Normal regular rate and rhythm without murmurs, gallops, or rubs. No chest wall tenderness. No peripheral edema, cyanosis or pallor. Capillary refill is less than 2 seconds. RESPIRATORY: Lungs are clear to auscultate bilaterally. No cough, wheezes, rales, or rhonchi. No stridor, respiratory distress, increase work of breathing, or accessary muscle used. ABD: Abdomen soft, nontender and non-distended. No guarding or rebound tenderness to palpate. Bowel sounds are normal in all 4 quadrants. There is no palpable masses or organomegaly. EXT: Full painless ROM of all extremities with no loss of sensation, strength, effusion or edema. SKIN: Warm, dry, normal color for patient. No erythema, lesions or rash over visible areas. BACK: Nontender without deformity or crepitance. No flank tenderness. NEUROLOGICAL: Alert and oriented to place, time and person. Sensation and motor function intact bilaterally. No facial droops, dysphasia. PSYCHIATRIC: Good judgement and reason, without hallucinations, abnormal affect or abnormal behaviors during the examination. Patient is not suicidal. Initial Vital Signs Initial Vital Signs: Vital Signs Temperature 98.0 F 04/27/20 13:21 Pulse Rate 79 04/27/20 13:21 Respiratory Rate 16 04/27/20 13:21 Blood Pressure 139/95 H 04/27/20 13:21 Pulse Oximetry 97 04/27/20 13:21 External: normal external exam, no edema, no erythema, no hernia, no inguinal lymphadenopathy, no lesions, no scrotal swelling and tenderness Penis: normal penis Meatus: meatus normal Scrotum: scrotum normal, no masses, no scrotal swelling, no ulcerations and no varicoceles Testes: normal, epididymides normal, no blue dot sign, not enlarged, no epididymal induration, no epidiymal masses, no masses, no testicular swelling and normal testicular lie <Derrell Duran MD - Last Filed: 04/28/20 07:45> Initial Vital Signs Initial Vital Signs: Vital Signs Temperature 98.0 F 04/27/20 13:21 Pulse Rate 79 04/27/20 13:21 Respiratory Rate 16 04/27/20 13:21 Blood Pressure 139/95 H 04/27/20 13:21 Pulse Oximetry 97 04/27/20 13:21 Scores <OSVALDO Luciano - Last Filed: 04/27/20 23:20> GCS [place] coma scale eye opening: Spontaneous Sushil coma scale verbal response: Orientated Sushil coma scale motor response: Obey commands [place] coma scale total score: 15 Course <Ladarius OSVALDO Luo - Last Filed: 04/27/20 23:20> Orders Ordered: ED Orders 04/27/20 15:43 Chlamydia Gonorrhea PCR -URINE Stat Urinalysis and Microscopic Stat <Derrell Duran MD - Last Filed: 04/28/20 07:45> Orders Ordered: ED Orders 04/27/20 15:43 Chlamydia Gonorrhea PCR -URINE Stat Urinalysis and Microscopic Stat MDM - Male Genitourinary <Ladarius JaramilloOSVALDO Zamudio - Last Filed: 04/27/20 23:20> Differential Diagnosis Differential diagnosis: Likely urinary tract infection, epididymitis, prostatitis, inguinal hernia and other (Testicular torsion, STI) Medical Records Attestation: I reviewed the patient's medical records. Lab Data Attestation: I reviewed the patient's lab results. Labs: Lab Results 04/27/20 04/27/20 Range/Units 15:43 15:43 Urine Color Yellow Urine Appearance Clear Urine pH 7.0 (4.5-8.0) Ur Specific [place] <=1.005 (1.000-1.035) Urine Protein Negative (Negative) Urine Glucose (UA) Negative (Negative) g/dL Urine Ketones Negative (NEGATIVE) Urine Occult Blood Negative (Negative) Urine Nitrate Negative (Negative) Urine Bilirubin Negative (NEGATIVE) Urine Urobilinogen 0.2 (0.2) E.U./dL Ur Leukocyte Esterase Negative (NEGATIVE) Urine RBC None seen (0-5/HPF) Urine WBC None seen (0-5/HPF) Amorphous Sediment 1+ Urine Bacteria None seen (None) Ur Culture Indicated? Cult not indicated Ur Chlamydia DNA (PCR) Not detected N gonorrhoeae DNA (PCR) Not detected Imaging Data US-Scrotum: Radiologist's Impression: [address] [address] Ultrasound Report Signed Patient: Stevie Guillen LMR#: [id number] : 1980Acct:[id number] Age/Sex: 40 / MDate of Service: 04/27/20 Loc: ED Accession Number: [id number] Procedure: US scrotum Ordering Provider: Ladarius Luo RELIGIOUS EDUCATOR PROCEDURE: US SCROTUM INDICATIONS: LEFT TESTICULAR PAIN X 3 DAYS; 2 WEEKS POST HERNIA SURGERY TECHNIQUE: Real-time scanning was performed of the scrotum and testicles, with image documentation. Color and pulse Doppler interrogation was performed of both testicles. COMPARISON: None. FINDINGS: Right: Testicle is normal in size at 4.3 x 2.2 x 3.1 cm, and homogenous in echotexture. Epididymis is normal in overall size and morphology. No hydrocele or varicoceles. Overlying scrotal skin is normal in thickness. Left: Testicle is normal in size at 4.5 x 2.3 x 3.5 cm, and homogeneous in echotexture. Epididymis is normal in overall size and morphology. No hydrocele or varicoceles. Overlying scrotal skin is normal in thickness. Doppler: Color and pulse Doppler demonstrate normal and symmetric arterial flow in both testicles. IMPRESSION: 1. Normal testicular ultrasound. No findings to suggest testicular torsion or mass. 2. Normal ultrasound appearance of epididymis. Dictated by: Felicia Costello M.D. on 04/27/2020 at 14:59 Approved by: Felicia Costello M.D. on 04/27/2020 at 15:01 [facility] Narrative Medical decision making narrative: This is a 40-year-old gentleman who presents to ED with intermittent but ongoing testicular/scrotal discomfort since 2002. Denies constitutional symptoms. Patient reports urinary frequency with has since but without dysuria. Patient denies unusual penile discharge but noticed some discoloration in his semen during ejaculation. Ultrasound test shows no evidence of testicular torsion or epididymitis. UA test without indications for infection. GC/chlamydia urine test was negative. Physical exam was unremarkable. Patient is afebrile and within normal vital signs. Patient advised to continue with Tylenol and Motrin for discomfort and discharged to home with few tabs of [place] for severe pain after discussing narcotic medication precaution. Today's findings were discussed with patient and advised to follow up with appointments with urologist and workers compensation analyst as scheduled and with his primary care physician. Return precautions were discussed with patient and patient verbalized understanding in agreement with treatment plan. <Derrell Duran MD - Last Filed: 04/28/20 07:45> Lab Data Labs: Lab Results 04/27/20 04/27/20 Range/Units 15:43 15:43 Urine Color Yellow Urine Appearance Clear Urine pH 7.0 (4.5-8.0) Ur Specific [place] <=1.005 (1.000-1.035) Urine Protein Negative (Negative) Urine Glucose (UA) Negative (Negative) g/dL Urine Ketones Negative (NEGATIVE) Urine Occult Blood Negative (Negative) Urine Nitrate Negative (Negative) Urine Bilirubin Negative (NEGATIVE) Urine Urobilinogen 0.2 (0.2) E.U./dL Ur Leukocyte Esterase Negative (NEGATIVE) Urine RBC None seen (0-5/HPF) Urine WBC None seen (0-5/HPF) Amorphous Sediment 1+ Urine Bacteria None seen (None) Ur Culture Indicated? Cult not indicated Ur Chlamydia DNA (PCR) Not detected N gonorrhoeae DNA (PCR) Not detected Discharge Plan Departure Patient Disposition: Home Clinical Impression: Bilateral groin pain Discharge Date/Time: 04/27/20 16:56 Instructions: DI for Groin Strain Activity Restrictions/Additional Instructions: You have been diagnosed with [bilateral groin pain. Ultrasound with no evidence of epididymitis or testicular torsion. Physical exam is unremarkable. Urine test is negative for infection. Receive a phone call from us if GC or chlamydia test comes back positive.]. What to do: *Take your medications as directed. [place] for severe pain. This is narcotic pain medication he can cause sedation so please do not drive, drink alcohol or operate heavy equipments. Otherwise you can continue to take Tylenol and or Motrin as needed for discomfort. Tylenol 650-1000 mg up to 3 to 4 times a day as needed for pain. Ibuprofen 400 mg up to 3 to 4 times a day as needed for pain with food to decrease GI irritation. Please continue to use jock strap. *Follow up with your primary care provider in 2-3 days, call for an appointment. Let them know you were seen in the ED and that we asked you to be seen in follow up. Please follow-up with you dull urologist and workers compensation analyst as scheduled. *Return to ED if you have any new, worsening, or concerning symptoms, such as [fever, urinary symptoms, chest pain, breathing difficulty, unable to tolerate fluids, or any acute concerns]. Prescriptions: New hydrocodone-acetaminophen [[place]] 5-325 mg tablet 1 tab PO BID PRN (Reason: pain) Qty: 5 RF: 0 No Action omeprazole PO RF: 0 valacyclovir PO RF: 0 fluconazole 150 mg tablet 150 mg PO DAILY RF: 0 tamsulosin PO RF: 0 Referrals: Genaro Donohue MD [Primary Care Provider] - <Derrell Duran MD - Last Filed: 04/28/20 07:45> Cosign ED Attending Cosignature Attestation: I was immediately available in the department for consultation. This documentation has been reviewed and I agree with assessment and plan. Supervised by Derrell Duran MD
== END 2020-04-27 16:56 | disposition home or self-care (01) ==
PROVIDERS: Emergency Provider Nurse Practitioner Family; PCP Family Medicine
DX: R10.31 Right lower quadrant pain (principal); N50.812 Left testicular pain; N50.811 Right testicular pain
CPT/HCPCS: 76870; 81001; 87491; 87591; 99283

== ENCOUNTER 2020-09-03 09:45 | Outpatient (RCR) | payer OTHER, MEDICAID, SELFPAY ==
--- NOTE | 2020-07-30 17:00 | PT.OIE ---
Current Diagnoses Pelvic and perineal pain (07/28/20) Past Surgical History (Last Reviewed 04/27/20 @ 23:13 by OSVALDO Luciano) H/O inguinal hernia repair (Acute) Visit Care Team Role Provider Type Genaro Donohue MD Family Provider Non-Staff Primary Care Provider Specialty: Family Practice Address: [address] [place] [address], [id number] Email: Tierney Corona PA-C Attending Provider Non-Staff Referring Provider Specialty: Urology Address: [address] [place] [address], [id number] Email: Physical Therapy Initial Evaluation PT-OP-A Visit Information Start: 07/28/20 12:07 Freq: Status: Active Protocol: Document 07/28/20 16:19 [facility] (Rec: 07/28/20 16:42 [facility] [id number]) Out-Patient Physical Therapy Visit Information Visit Information Visit Type Initial Evaluation Visit Start Time 16:00 Visit Stop Time 16:45 Total Visit Minutes 45 Visit Number 1 Evaluation Information Evaluation Date 07/28/20 PT-OP-B Current Condition Start: 07/28/20 12:07 Freq: Status: Active Protocol: Document 07/28/20 16:19 [facility] (Rec: 07/28/20 16:42 [facility] [id number]) Current Condition History of Current Condition Onset Date 2002 felt a little like he had symptoms, 2010 symptoms progressed Current Complaints painful urination with nerve pain and chronic pelvic pain History of Current Condition Saw Dr Maravilla in 2010 and tests were performed and they couldn 't find anything, 2012 pain really started to increase and he reports he saw many doctors, finally Dr smith found his two inguinal hernias . So they were in repaired in March in [place]. He had scrotem pain and urethral pain after the surgery. He was given a steroid cream. The pain travels up the left side of his anterior pelvis and the pain travels to his penis. He has the sensation that his bladder is full all the time, painful urination, flank pain. He feels like he has dysuria . When he gets the urge to void he feels a internal pain into his stomach and up his chest. His urethra feels thick and swollen. In 2002 he fell off a ladder 30 feet and broke his left femur in the upper thigh, shattered his back, they wanted to pin it but he did not want that. He doesn't have back pain but he has abdominal pain. Prior Treatments and Tests bilateral inguinal repair hernia repair Future Testing and Treatments Planned Gallbladder removal is scheduled for August Treatment Goals Patient/Caregiver Goals Сергей's goals are to return to his job and be able to take care of his son with decreased pain PT-OP-F Manual Assessment Start: 07/28/20 12:07 Freq: Status: Active Protocol: Document 07/28/20 16:57 [facility] (Rec: 07/30/20 16:59 [facility] [id number]) Manual Assessments Soft Tissue Assessment Soft Tissue Mobility Assessment tightness in the suprapubic fascia and left side of the abdominal wall, decreased fascial mobility of the bladder in a superior direction or to the right decreased mobility of the iliopsoas on the left PT-OP-G Mobility & Gait Start: 07/28/20 12:07 Freq: Status: Active Protocol: Document 07/28/20 16:00 [facility] (Rec: 07/30/20 16:38 [facility] [id number]) OP Gait Assessment Gait Able to Maintain Weight Bearing Status Yes During Gait Comments Gait Comments forward flexed posture with gait due to pain PT-OP-I Pelvic Floor Start: 07/30/20 09:39 Freq: Status: Active Protocol: Document 07/30/20 09:39 [facility] (Rec: 07/30/20 09:41 [facility] [id number]) Pelvic Floor Assessment Urine Pelvic Floor Surgery No Urinary Symptoms Urge Sensation,Hesitancy, Incomplete Emptying,Pain Other Urinary Symptoms Painful urination and painful bladder when it is filling. Pt reports he is not sleeping well at night as he constantly has to get up to void due to pain Leaks Per Day no leakage Voiding Frequency 10 times or more Nocturia 4 PT-OP-J Posture/Palpation/Skin Start: 07/28/20 12:07 Freq: Status: Active Protocol: Document 07/28/20 16:00 [facility] (Rec: 07/30/20 09:39 [facility] [id number]) Palpation Assessment Location suprapubic fascia Palpation Location suprapubic fascia Palpation Findings Soft Tissue Tightness,Spasm, Tenderness Palpation Details tenderness in the suprapubic fascia, with trial of stretchingof the suprapubic fascia this is very painful left side iliopsoas region Palpation Location left side lower abdominal wall , iliopsoas region Palpation Findings Spasm,Muscle Guarding, Tenderness Palpation Details Myofascial restrictions in the left lower abdominal quadrant and iliopsoas region PT-OP-K Range of Motion Start: 07/28/20 12:07 Freq: Status: Active Protocol: Document 07/28/20 16:00 [facility] (Rec: 07/30/20 16:39 [facility] [id number]) Lumbar Spine Range of Motion Lumbar Spine Active Comments limited lumbar extension due to tightness and pulling, Stevie tends to stay in a flexed forward posture PT-OP-L Special Tests Start: 07/28/20 12:07 Freq: Status: Active Protocol: Document 07/28/20 16:56 [facility] (Rec: 07/30/20 16:57 [facility] [id number]) Special Tests Hip Special Tests Doug Test Results + doug test on the left Comments + doug test on the and decreased ability to stand up straight. PT-OP-T Assessment and Plan Start: 07/28/20 12:07 Freq: Status: Active Protocol: Document 07/28/20 16:39 [facility] (Rec: 07/30/20 16:56 [facility] [id number]) Physical Therapy Assessment Rehab Potential Rehabilitation Potential Good Evaluation Complexity Number of Personal Factors/Comorbidities 1-2 Number of Body Systems Impaired 3 Clinical Presentation at Evaluation Evolving Impairments Impairments Activity Tolerance,Pain, Posture,ROM,Sensation,Soft Tissue Mobility Goals iliopsoas tightness Impairment Decreased trunk extension and iliopsoas tightness Field Tech Goal (LTG) Stevie demonstrates improved length of the iliopsoas and is able to stand up tall without standing flexed forward due to pain. LTG Duration 8 weeks pain Impairment Pelvic pain rated 9/10 [facility] Goal (LTG) Pain levels are reduced overall to 4/10 or better LTG Duration 8 weeks Two Impairment Pain with urination and a slow hesitant urinary stream [facility] Goal (LTG) Stevie is no longer c/o pain with urination and has a improved urine stream without hesitency LTG Duration 8 weeks One Impairment urinary urgency and frequency with pain Short Term Goal (STG) Stevie is given a bladder diary to begin tracking his voids and bladder irritants and he has fill this out for 2 weeks duration STG Duration 2 weeks Field Tech Goal (LTG) Stevie is educated on urge deference technique and bladder retraining to decrease the interval of time between voiding. LTG Duration 8 weeks Assessment Summary Assessment Stevie presents to physical therapy today with complaints of chronic pelvic pain, urgency and frequency to void and painful urination. He describes nocturia as well and reports waking up at least 4 times per night to void. He rates his pain as 9/10 worse on the left side of his body. He reports pain radiates from his lower left abdomen up towards his chest and down the front of the pelvis towards his thigh. He underwent a bilateral inguinal hernia repair in March at the [facility]. Stevie notes this did help with some of his pain however he still has chronic pelvic pain and pain with urination. He also describes genital itching and that his scrotum has been red and inflammed. He recently saw his urologist and was given a cortisone cream for his scrotum and he feels this has helped reduce the redness and swelling. With examination today Stevie sits in a forward flexed posture due to his pain. He has difficulty straightening up as it pulls on theleft side of his abdominal wall. He has tightness of the iliopsoas L>R and there is a lot of fascial adhesions on the left lower abdomen. I found a great deal of tightness in the suprapubic fascia especially on the left. Treatment at this point for Stevie will include fascial release and bladder mobilizations to try and encourage his baldder being able to expand and fill more. I also started him with hip flexor stretches. Treatment will include downtraining of the pelvic floor and further evaluation of the pelvic floor as well as bladder retraining and urge deference technique. Stevie does have a past medical history of spinal fractures after falling off a 30 foot ladder (per patient report). He also sustained a left femur fracture at the time of his fall. Physical Therapy Plan Frequency and Duration Frequency of Treatment 2x/Week Duration of Treatment 8 Plan of Care Start Date 07/28/20 Plan of Care End Date 09/22/20 Therapeutic Interventions Therapeutic Interventions Home Exercise Program,Manual Therapy,Neuromuscular Re- education,Patient/Caregiver Education,Self-Care/Home Management,Soft Tissue Mobilization Modalities Biofeedback Next Visit Focus/Plan Next Note Type Treatment Note Next Visit Plan Begin EMG biofeedback for downtraining of the pelvic floor, MFR over the abdominal wall and suprapubic fascia, educate Stevie in a home stretching program.
--- NOTE | 2020-07-30 17:00 | PT.OPPOC ---
Physical, Occupational & Speech Therapy At [facility] Current Diagnoses Pelvic and perineal pain (07/28/20) Visit Care Team Role Provider Type Genaro Donohue MD Family Provider Non-Staff Primary Care Provider Specialty: Family Practice Address: [address] [place] [address], [id number] Email: Tierney Corona PA-C Attending Provider Non-Staff Referring Provider Specialty: Urology Address: [address] [place] [address], [id number] Email: Plan Of Care PT-OP-T Assessment and Plan Start: 07/28/20 12:07 Freq: Status: Active Protocol: Document 07/28/20 16:39 [facility] (Rec: 07/30/20 16:56 [facility] [id number]) Physical Therapy Assessment Rehab Potential Rehabilitation Potential Good Evaluation Complexity Number of Personal Factors/Comorbidities 1-2 Number of Body Systems Impaired 3 Clinical Presentation at Evaluation Evolving Impairments Impairments Activity Tolerance,Pain, Posture,ROM,Sensation,Soft Tissue Mobility Goals iliopsoas tightness Impairment Decreased trunk extension and iliopsoas tightness 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 LTG Duration 8 weeks pain Impairment Pelvic pain rated 9/10 Usp Goal (LTG) Pain levels are reduced overall to 4/10 or better LTG Duration 8 weeks Two Impairment Pain with urination and a slow hesitant urinary stream Usp Goal (LTG) Stevie is no longer c/o pain with urination and has a improved urine stream without hesitancy LTG Duration 8 weeks One Impairment urinary urgency and frequency with pain Short Term Goal (STG) Stevie is given a bladder diary to begin tracking his voids and bladder irritants and he has fill this out for 2 weeks duration STG Duration 2 weeks [employer] Faculty Member Goal (LTG) Stevie is educated on urge deference technique and bladder retraining to decrease the interval of time between voiding. LTG Duration 8 weeks Assessment Summary Assessment Stevie presents to physical therapy today with complaints of chronic pelvic pain, urgency and frequency to void and painful urination. He describes nocturia as well and reports waking up at least 4 times per night to void. He rates his pain as 9/10 worse on the left side of his body. He reports pain radiates from his lower left abdomen up towards his chest and down the front of the pelvis towards his thigh. He underwent a bilateral inguinal hernia repair in March at the [facility]. Stevie notes this did help with some of his pain however he still has chronic pelvic pain and pain with urination. He also describes genital itching and that his scrotum has been red and inflamed. He recently saw his urologist and was given a cortisone cream for his scrotum and he feels this has helped reduce the redness and swelling. With examination today Stevie sits in a forward flexed posture due to his pain. He has difficulty straightening up as it pulls on the left side of his abdominal wall. He has tightness of the iliopsoas L>R and there is a lot of fascial adhesions on the left lower abdomen. I found a great deal of tightness in the suprapubic fascia especially on the left. Treatment at this point for Stevie will include fascial release and bladder mobilizations to try and encourage his bladder being able to expand and fill more. I also started him with hip flexor stretches. Treatment will include downtraining of the pelvic floor and further evaluation of the pelvic floor as well as bladder retraining and urge deference technique. Stevie does have a past medical history of spinal fractures after falling off a 30 foot ladder (per patient report). He also sustained a left femur fracture at the time of his fall. Physical Therapy Plan Frequency and Duration Frequency of Treatment 2x/Week Duration of Treatment 8 Plan of Care Start Date 07/28/20 Plan of Care End Date 09/22/20 Therapeutic Interventions Therapeutic Interventions Home Exercise Program,Manual Therapy,Neuromuscular Re- education,Patient/Caregiver Education,Self-Care/Home Management,Soft Tissue Mobilization Modalities Biofeedback Next Visit Focus/Plan Next Note Type Treatment Note Next Visit Plan Begin EMG biofeedback for down training of the pelvic floor, MFR over the abdominal wall and suprapubic fascia, educate Stevie in a home stretching program. Plan of Care Dates Plan of Care Start Date 07/28/20 Plan of Care End Date 09/22/20 Electronically Signed by: Jyoti Ontiveros PT 07/30/20 [id number] Please Sign and Return: I have reviewed this Plan of Care and certify that the skilled therapy services above are required to meet the patient?s needs. Physician Signature Date Printed Name and Credentials Clinical Instructor Signature Printed Name and Credentials
--- NOTE | 2020-08-20 10:01 | PT.OTN ---
Current Diagnoses Pelvic and perineal pain (08/20/20) Physical Therapy Treatment Note PT-OP-A Visit Information Start: 07/28/20 12:07 Freq: Status: Active Protocol: Document 08/20/20 09:51 [facility] (Rec: 08/20/20 10:00 [facility] [id number]) Out-Patient Physical Therapy Visit Information Visit Information Visit Type Treatment Note Visit Start Time 09:00 Visit Stop Time 09:45 Total Visit Minutes 45 Visit Number 2 PT-OP-B Current Condition Start: 07/28/20 12:07 Freq: Status: Active Protocol: Document 07/28/20 16:19 [facility] (Rec: 07/28/20 16:42 [facility] [id number]) Current Condition History of Current Condition Onset Date 2002 felt a little like he had symptoms, 2010 symptoms progressed Current Complaints painful urination with nerve pain and chronic pelvic pain History of Current Condition Saw Dr Maravilla in 2010 and tests were performed and they couldn 't find anything, 2012 pain really started to increase and he reports he saw many doctors, finally Dr smith found his two inguinal hernias . So they were in repaired in March in [place]. He had scrotem pain and urethral pain after the surgery. He was given a steroid cream. The pain travels up the left side of his anterior pelvis and the pain travels to his penis. He has the sensation that his bladder is full all the time, painful urination, flank pain. He feels like he has dysuria . When he gets the urge to void he feels a internal pain into his stomach and up his chest. His urethra feels thick and swollen. In 2002 he fell off a ladder 30 feet and broke his left femur in the upper thigh, shattered his back, they wanted to pin it but he did not want that. He doesn't have back pain but he has abdominal pain. Prior Treatments and Tests bilateral inguinal repair hernia repair Future Testing and Treatments Planned Gallbladder removal is scheduled for August Treatment Goals Patient/Caregiver Goals Сергей's goals are to return to his job and be able to take care of his son with decreased pain PT-OP-C Subjective Start: 07/28/20 12:07 Freq: Status: Active Protocol: Document 08/20/20 09:51 [facility] (Rec: 08/20/20 10:00 [facility] [id number]) OP-PT Subjective Patient Comments Patient Comments Slava reports he is voiding approximately 4 xms every hour . He is still suffering from swollen testicles and redness and pain PT-OP-F Manual Assessment Start: 07/28/20 12:07 Freq: Status: Active Protocol: Document 07/28/20 16:57 [facility] (Rec: 07/30/20 16:59 [facility] [id number]) Manual Assessments Soft Tissue Assessment Soft Tissue Mobility Assessment tightness in the suprapubic fascia and left side of the abdominal wall, decreased fascial mobility of the bladder in a superior direction or to the right decreased mobility of the iliopsoas on the left PT-OP-G Mobility & Gait Start: 07/28/20 12:07 Freq: Status: Active Protocol: Document 07/28/20 16:00 [facility] (Rec: 07/30/20 16:38 [facility] [id number]) OP Gait Assessment Gait Able to Maintain Weight Bearing Status Yes During Gait Comments Gait Comments forward flexed posture with gait due to pain PT-OP-I Pelvic Floor Start: 07/30/20 09:39 Freq: Status: Active Protocol: Document 07/30/20 09:39 [facility] (Rec: 07/30/20 09:41 [facility] [id number]) Pelvic Floor Assessment Urine Pelvic Floor Surgery No Urinary Symptoms Urge Sensation,Hesitancy, Incomplete Emptying,Pain Other Urinary Symptoms Painful urination and painful bladder when it is filling. Pt reports he is not sleeping well at night as he constantly has to get up to void due to pain Leaks Per Day no leakage Voiding Frequency 10 times or more Nocturia 4 PT-OP-J Posture/Palpation/Skin Start: 07/28/20 12:07 Freq: Status: Active Protocol: Document 07/28/20 16:00 [facility] (Rec: 07/30/20 09:39 [facility] [id number]) Palpation Assessment Location suprapubic fascia Palpation Location suprapubic fascia Palpation Findings Soft Tissue Tightness,Spasm, Tenderness Palpation Details tenderness in the suprapubic fascia, with trial of stretchingof the suprapubic fascia this is very painful left side iliopsoas region Palpation Location left side lower abdominal wall , iliopsoas region Palpation Findings Spasm,Muscle Guarding, Tenderness Palpation Details Myofascial restrictions in the left lower abdominal quadrant and iliopsoas region PT-OP-K Range of Motion Start: 07/28/20 12:07 Freq: Status: Active Protocol: Document 07/28/20 16:00 [facility] (Rec: 07/30/20 16:39 [facility] [id number]) Lumbar Spine Range of Motion Lumbar Spine Active Comments limited lumbar extension due to tightness and pulling, Stevie tends to stay in a flexed forward posture PT-OP-L Special Tests Start: 07/28/20 12:07 Freq: Status: Active Protocol: Document 07/28/20 16:56 [facility] (Rec: 07/30/20 16:57 [facility] [id number]) Special Tests Hip Special Tests Doug Test Results + doug test on the left Comments + doug test on the and decreased ability to stand up straight. PT-OP-Q Treatments Start: 08/20/20 09:51 Freq: Status: Active Protocol: Document 08/20/20 09:51 [facility] (Rec: 08/20/20 10:00 [facility] [id number]) Therapeutic Exercises Other Exercises cobra stretch Other Exercise Name supien cobra stretch Reps/Minutes 2 x 30 seconds 1/2 kneeling iliopsoas stretch Other Exercise Name 1/2 kneeling iliopsoas stretch Reps/Minutes 2 xms each leg x 30 sec-1min Manual Therapy Treatment Soft Tissue Mobilization MFR left side of the lower abdominal wall Body Location MFR left side of the lower abdominal wall Comments tightness in the left side of abdominal wall and inguinal region visceral mobilizations of the bladder Body Location visceral mobilizations of the bladder Body Position Supine Self-Care/Home Management Treatment Education Patient Education Home Exercise Program Other Education Stevie was educated in bladder retraining and urge deference technique and given a handout on the technique PT-OP-T Assessment and Plan Start: 07/28/20 12:07 Freq: Status: Active Protocol: Document 08/20/20 09:51 [facility] (Rec: 08/20/20 10:00 [facility] [id number]) Physical Therapy Assessment Assessment Summary Assessment Treatment today focused on bladder retraining and explaining the nerve irritation to the bladder causing urgency, MFR and stretches to open up the fascia surrounding the bladder and inguinal region. Stevie mentoined today taht he used to be heavy into drugs and also did things such as drinking bleach and paint thinner as well as eating glass. I explained to him how these actions may have damaged the linning of his bladder or kidneys. Physical Therapy Plan Frequency and Duration Frequency of Treatment 2x/Week Duration of Treatment 8 Plan of Care Start Date 07/28/20 Plan of Care End Date 09/22/20 Therapeutic Interventions Therapeutic Interventions Home Exercise Program,Manual Therapy,Neuromuscular Re- education,Patient/Caregiver Education,Self-Care/Home Management,Soft Tissue Mobilization Modalities Biofeedback Next Visit Focus/Plan Next Note Type Treatment Note Next Visit Plan Will begin EMG biofeedback next visit to assess the resting tone of the pelvic floor
--- NOTE | 2020-08-27 17:48 | PT.OTN ---
Current Diagnoses Pelvic and perineal pain (08/27/20) Physical Therapy Treatment Note PT-OP-A Visit Information Start: 07/28/20 12:07 Freq: Status: Active Protocol: Document 08/27/20 09:01 [facility] (Rec: 08/27/20 09:08 [facility] [id number]) Out-Patient Physical Therapy Visit Information Visit Information Visit Type Treatment Note Visit Start Time 09:00 Visit Stop Time 09:45 Total Visit Minutes 45 Visit Number 3 PT-OP-B Current Condition Start: 07/28/20 12:07 Freq: Status: Active Protocol: Document 07/28/20 16:19 [facility] (Rec: 07/28/20 16:42 [facility] [id number]) Current Condition History of Current Condition Onset Date 2002 felt a little like he had symptoms, 2010 symptoms progressed Current Complaints painful urination with nerve pain and chronic pelvic pain History of Current Condition Saw Dr Maravilla in 2010 and tests were performed and they couldn 't find anything, 2012 pain really started to increase and he reports he saw many doctors, finally Dr smith found his two inguinal hernias . So they were in repaired in March in [place]. He had scrotem pain and urethral pain after the surgery. He was given a steroid cream. The pain travels up the left side of his anterior pelvis and the pain travels to his penis. He has the sensation that his bladder is full all the time, painful urination, flank pain. He feels like he has dysuria . When he gets the urge to void he feels a internal pain into his stomach and up his chest. His urethra feels thick and swollen. In 2002 he fell off a ladder 30 feet and broke his left femur in the upper thigh, shattered his back, they wanted to pin it but he did not want that. He doesn't have back pain but he has abdominal pain. Prior Treatments and Tests bilateral inguinal repair hernia repair Future Testing and Treatments Planned Gallbladder removal is scheduled for August Treatment Goals Patient/Caregiver Goals Сергей's goals are to return to his job and be able to take care of his son with decreased pain PT-OP-C Subjective Start: 07/28/20 12:07 Freq: Status: Active Protocol: Document 08/27/20 09:01 [facility] (Rec: 08/27/20 09:08 [facility] [id number]) OP-PT Subjective Patient Comments Patient Comments Stevie reports when he is working the pain eases off a little bit. He is focusing on the exercises. He is having his gall bladder removed tomorrow. PT-OP-F Manual Assessment Start: 07/28/20 12:07 Freq: Status: Active Protocol: Document 07/28/20 16:57 [facility] (Rec: 07/30/20 16:59 [facility] [id number]) Manual Assessments Soft Tissue Assessment Soft Tissue Mobility Assessment tightness in the suprapubic fascia and left side of the abdominal wall, decreased fascial mobility of the bladder in a superior direction or to the right decreased mobility of the iliopsoas on the left PT-OP-G Mobility & Gait Start: 07/28/20 12:07 Freq: Status: Active Protocol: Document 07/28/20 16:00 [facility] (Rec: 07/30/20 16:38 [facility] [id number]) OP Gait Assessment Gait Able to Maintain Weight Bearing Status Yes During Gait Comments Gait Comments forward flexed posture with gait due to pain PT-OP-I Pelvic Floor Start: 07/30/20 09:39 Freq: Status: Active Protocol: Document 07/30/20 09:39 [facility] (Rec: 07/30/20 09:41 [facility] [id number]) Pelvic Floor Assessment Urine Pelvic Floor Surgery No Urinary Symptoms Urge Sensation,Hesitancy, Incomplete Emptying,Pain Other Urinary Symptoms Painful urination and painful bladder when it is filling. Pt reports he is not sleeping well at night as he constantly has to get up to void due to pain Leaks Per Day no leakage Voiding Frequency 10 times or more Nocturia 4 PT-OP-J Posture/Palpation/Skin Start: 07/28/20 12:07 Freq: Status: Active Protocol: Document 07/28/20 16:00 [facility] (Rec: 07/30/20 09:39 [facility] [id number]) Palpation Assessment Location suprapubic fascia Palpation Location suprapubic fascia Palpation Findings Soft Tissue Tightness,Spasm, Tenderness Palpation Details tenderness in the suprapubic fascia, with trial of stretchingof the suprapubic fascia this is very painful left side iliopsoas region Palpation Location left side lower abdominal wall , iliopsoas region Palpation Findings Spasm,Muscle Guarding, Tenderness Palpation Details Myofascial restrictions in the left lower abdominal quadrant and iliopsoas region PT-OP-K Range of Motion Start: 07/28/20 12:07 Freq: Status: Active Protocol: Document 07/28/20 16:00 [facility] (Rec: 07/30/20 16:39 [facility] [id number]) Lumbar Spine Range of Motion Lumbar Spine Active Comments limited lumbar extension due to tightness and pulling, Stevie tends to stay in a flexed forward posture PT-OP-L Special Tests Start: 07/28/20 12:07 Freq: Status: Active Protocol: Document 07/28/20 16:56 [facility] (Rec: 07/30/20 16:57 [facility] [id number]) Special Tests Hip Special Tests Doug Test Results + doug test on the left Comments + doug test on the and decreased ability to stand up straight. PT-OP-Q Treatments Start: 08/20/20 09:51 Freq: Status: Active Protocol: Document 08/27/20 09:17 [facility] (Rec: 08/27/20 09:18 [facility] [id number]) Therapeutic Exercises Other Exercises happy baby stretch Other Exercise Name happy baby stretch Comments to relax the levator ani cobra stretch Other Exercise Name supien cobra stretch Reps/Minutes 2 x 30 seconds Manual Therapy Treatment Soft Tissue Mobilization MFR left side of the lower abdominal wall Body Location MFR left side of the lower abdominal wall Comments tightness in the left side of abdominal wall and inguinal region visceral mobilizations of the bladder Body Location visceral mobilizations of the bladder Body Position Supine Neuro Re-Education Treatment Other Activities EMG BIOFEEDBACK Details EMG biofeedback Comments began biofeedback for the pelvic floor today with a rectal sensor. Pt did have elevated resting tone 10.0 uv. We added in stretchesf or his pelvic floor and I gave him a home program to work on contract relax of the pelvic floor muscles as 10 seconds was difficult to sustain Self-Care/Home Management Treatment Education Patient Education Home Exercise Program,Pain Management Other Education pt education on urge deference technique and pain management . Diaphragmatic breathing, contract relax of the pelvic floor and relaxed awareness of the pelvic floor PT-OP-T Assessment and Plan Start: 07/28/20 12:07 Freq: Status: Active Protocol: Document 08/27/20 17:45 [facility] (Rec: 08/27/20 17:46 [facility] [id number]) Physical Therapy Assessment Assessment Summary Assessment I began EMG biofeedback today for Stevie. He did have elevated resting tone of the levator ani and had difficulty sustaining a pelvic floor contraction. He is feeling he can delay the need to void a bit longer now. I added in some pelvic floor stretches for his HEP.
--- NOTE | 2020-09-03 17:50 | PT.OTN ---
Current Diagnoses Pelvic and perineal pain (09/03/20) Physical Therapy Treatment Note PT-OP-A Visit Information Start: 07/28/20 12:07 Freq: Status: Active Protocol: Document 09/03/20 09:51 [facility] (Rec: 09/03/20 09:59 [facility] [id number]) Out-Patient Physical Therapy Visit Information Visit Information Visit Type Treatment Note Visit Start Time 09:45 Visit Stop Time 10:20 Total Visit Minutes 40 Visit Number 4 PT-OP-B Current Condition Start: 07/28/20 12:07 Freq: Status: Active Protocol: Document 07/28/20 16:19 [facility] (Rec: 07/28/20 16:42 [facility] [id number]) Current Condition History of Current Condition Onset Date 2002 felt a little like he had symptoms, 2010 symptoms progressed Current Complaints painful urination with nerve pain and chronic pelvic pain History of Current Condition Saw Dr Maravilla in 2010 and tests were performed and they couldn 't find anything, 2012 pain really started to increase and he reports he saw many doctors, finally Dr smith found his two inguinal hernias . So they were in repaired in March in [place]. He had scrotem pain and urethral pain after the surgery. He was given a steroid cream. The pain travels up the left side of his anterior pelvis and the pain travels to his penis. He has the sensation that his bladder is full all the time, painful urination, flank pain. He feels like he has dysuria . When he gets the urge to void he feels a internal pain into his stomach and up his chest. His urethra feels thick and swollen. In 2002 he fell off a ladder 30 feet and broke his left femur in the upper thigh, shattered his back, they wanted to pin it but he did not want that. He doesn't have back pain but he has abdominal pain. Prior Treatments and Tests bilateral inguinal repair hernia repair Future Testing and Treatments Planned Gallbladder removal is scheduled for August Treatment Goals Patient/Caregiver Goals Сергей's goals are to return to his job and be able to take care of his son with decreased pain PT-OP-C Subjective Start: 07/28/20 12:07 Freq: Status: Active Protocol: Document 09/03/20 09:51 [facility] (Rec: 09/03/20 09:59 [facility] [id number]) OP-PT Subjective Patient Comments Patient Comments pt says [facility] says his prostate and his bladder are not alinging right. The prostate may be creating some kind of blockage in a particular area. He had his gall bladder out last monday. His pain is primary in his bladder region now. He has been trying the urge deference technique Patient Reported Progress Improving PT-OP-F Manual Assessment Start: 07/28/20 12:07 Freq: Status: Active Protocol: Document 07/28/20 16:57 [facility] (Rec: 07/30/20 16:59 [facility] [id number]) Manual Assessments Soft Tissue Assessment Soft Tissue Mobility Assessment tightness in the suprapubic fascia and left side of the abdominal wall, decreased fascial mobility of the bladder in a superior direction or to the right decreased mobility of the iliopsoas on the left PT-OP-G Mobility & Gait Start: 07/28/20 12:07 Freq: Status: Active Protocol: Document 07/28/20 16:00 [facility] (Rec: 07/30/20 16:38 [facility] [id number]) OP Gait Assessment Gait Able to Maintain Weight Bearing Status Yes During Gait Comments Gait Comments forward flexed posture with gait due to pain PT-OP-I Pelvic Floor Start: 07/30/20 09:39 Freq: Status: Active Protocol: Document 07/30/20 09:39 [facility] (Rec: 07/30/20 09:41 [facility] [id number]) Pelvic Floor Assessment Urine Pelvic Floor Surgery No Urinary Symptoms Urge Sensation,Hesitancy, Incomplete Emptying,Pain Other Urinary Symptoms Painful urination and painful bladder when it is filling. Pt reports he is not sleeping well at night as he constantly has to get up to void due to pain Leaks Per Day no leakage Voiding Frequency 10 times or more Nocturia 4 PT-OP-J Posture/Palpation/Skin Start: 07/28/20 12:07 Freq: Status: Active Protocol: Document 07/28/20 16:00 [facility] (Rec: 07/30/20 09:39 [facility] [id number]) Palpation Assessment Location suprapubic fascia Palpation Location suprapubic fascia Palpation Findings Soft Tissue Tightness,Spasm, Tenderness Palpation Details tenderness in the suprapubic fascia, with trial of stretchingof the suprapubic fascia this is very painful left side iliopsoas region Palpation Location left side lower abdominal wall , iliopsoas region Palpation Findings Spasm,Muscle Guarding, Tenderness Palpation Details Myofascial restrictions in the left lower abdominal quadrant and iliopsoas region PT-OP-K Range of Motion Start: 07/28/20 12:07 Freq: Status: Active Protocol: Document 07/28/20 16:00 [facility] (Rec: 07/30/20 16:39 [facility] [id number]) Lumbar Spine Range of Motion Lumbar Spine Active Comments limited lumbar extension due to tightness and pulling, Stevie tends to stay in a flexed forward posture PT-OP-L Special Tests Start: 07/28/20 12:07 Freq: Status: Active Protocol: Document 07/28/20 16:56 [facility] (Rec: 07/30/20 16:57 [facility] [id number]) Special Tests Hip Special Tests Doug Test Results + duog test on the left Comments + doug test on the and decreased ability to stand up straight. PT-OP-Q Treatments Start: 08/20/20 09:51 Freq: Status: Active Protocol: Document 09/03/20 10:32 [facility] (Rec: 09/03/20 10:35 [facility] [id number]) Therapeutic Exercises Other Exercises illiopsoas stretch off the side of the table Reps/Minutes 60 seconds each leg happy baby stretch Other Exercise Name happy baby stretch Comments to relax the levator ani cobra stretch Other Exercise Name supien cobra stretch Reps/Minutes 2 x 30 seconds Manual Therapy Treatment Soft Tissue Mobilization MFR left side of the lower abdominal wall Body Location MFR left side of the lower abdominal wall Comments tightness in the left side of abdominal wall and inguinal region visceral mobilizations of the bladder Body Location visceral mobilizations of the bladder Body Position Supine PT-OP-T Assessment and Plan Start: 07/28/20 12:07 Freq: Status: Active Protocol: Document 09/03/20 10:32 [facility] (Rec: 09/03/20 10:35 [facility] [id number]) Physical Therapy Assessment Assessment Summary Assessment Pt had gallbladder surgery last monday. Care was taken to avoid areas of incisions today. MFR over the bladder and lower left side of the pelvis. Physical Therapy Plan Frequency and Duration Frequency of Treatment 2x/Week Duration of Treatment 8 Plan of Care Start Date 07/28/20 Plan of Care End Date 09/22/20 Next Visit Focus/Plan Next Note Type Treatment Note Next Visit Plan Return to [facility] biofeedback next visit to assess the resting tone of the pelvic floor and work on contract relax of the pelvic floor muscles.
--- NOTE | 2020-12-02 10:24 | PT.OPDS ---
Current Diagnoses Pelvic and perineal pain (09/03/20) Visit Care Team Role Provider Type Genaro Donohue MD Family Provider Non-Staff Primary Care Provider Specialty: Family Practice Address: [address] [place], [address] Email: Tierney Corona PA-C Attending Provider Non-Staff Referring Provider Specialty: Urology Address: [address] [place] [address], [id number] Email: Visit Number Visit Number 4 Discharge Summary PT-OP-B Current Condition Start: 07/28/20 12:07 Freq: Status: Active Protocol: Document 07/28/20 16:19 [facility] (Rec: 07/28/20 16:42 [facility] [id number]) Current Condition History of Current Condition Onset Date 2002 felt a little like he had symptoms, 2010 symptoms progressed Current Complaints painful urination with nerve pain and chronic pelvic pain History of Current Condition Saw Dr Maravilla in 2010 and tests were performed and they couldn 't find anything, 2012 pain really started to increase and he reports he saw many doctors, finally Dr smith found his two inguinal hernias . So they were in repaired in March in [place]. He had scrotem pain and urethral pain after the surgery. He was given a steroid cream. The pain travels up the left side of his anterior pelvis and the pain travels to his penis. He has the sensation that his bladder is full all the time, painful urination, flank pain. He feels like he has dysuria . When he gets the urge to void he feels a internal pain into his stomach and up his chest. His urethra feels thick and swollen. In 2002 he fell off a ladder 30 feet and broke his left femur in the upper thigh, shattered his back, they wanted to pin it but he did not want that. He doesn't have back pain but he has abdominal pain. Prior Treatments and Tests bilateral inguinal repair hernia repair Future Testing and Treatments Planned Gallbladder removal is scheduled for August Treatment Goals Patient/Caregiver Goals Сергей's goals are to return to his job and be able to take care of his son with decreased pain PT-OP-C Subjective Start: 07/28/20 12:07 Freq: Status: Active Protocol: Document 09/03/20 09:51 [facility] (Rec: 09/03/20 09:59 [facility] [id number]) OP-PT Subjective Patient Comments Patient Comments pt says [facility]rology says his prostate and his bladder are not alinging right. The prostate may be creating some kind of blockage in a particular area. He had his gall bladder out last monday. His pain is primary in his bladder region now. He has been trying the urge deference technique Patient Reported Progress Improving PT-OP-F Manual Assessment Start: 07/28/20 12:07 Freq: Status: Active Protocol: Document 07/28/20 16:57 [facility] (Rec: 07/30/20 16:59 [facility] [id number]) Manual Assessments Soft Tissue Assessment Soft Tissue Mobility Assessment tightness in the suprapubic fascia and left side of the abdominal wall, decreased fascial mobility of the bladder in a superior direction or to the right decreased mobility of the iliopsoas on the left PT-OP-G Mobility & Gait Start: 07/28/20 12:07 Freq: Status: Active Protocol: Document 07/28/20 16:00 [facility] (Rec: 07/30/20 16:38 [facility] [id number]) OP Gait Assessment Gait Able to Maintain Weight Bearing Status Yes During Gait Comments Gait Comments forward flexed posture with gait due to pain PT-OP-I Pelvic Floor Start: 07/30/20 09:39 Freq: Status: Active Protocol: Document 07/30/20 09:39 [facility] (Rec: 07/30/20 09:41 [facility] [id number]) Pelvic Floor Assessment Urine Pelvic Floor Surgery No Urinary Symptoms Urge Sensation,Hesitancy, Incomplete Emptying,Pain Other Urinary Symptoms Painful urination and painful bladder when it is filling. Pt reports he is not sleeping well at night as he constantly has to get up to void due to pain Leaks Per Day no leakage Voiding Frequency 10 times or more Nocturia 4 PT-OP-J Posture/Palpation/Skin Start: 07/28/20 12:07 Freq: Status: Active Protocol: Document 07/28/20 16:00 [facility] (Rec: 07/30/20 09:39 [facility] [id number]) Palpation Assessment Location suprapubic fascia Palpation Location suprapubic fascia Palpation Findings Soft Tissue Tightness,Spasm, Tenderness Palpation Details tenderness in the suprapubic fascia, with trial of stretchingof the suprapubic fascia this is very painful left side iliopsoas region Palpation Location left side lower abdominal wall , iliopsoas region Palpation Findings Spasm,Muscle Guarding, Tenderness Palpation Details Myofascial restrictions in the left lower abdominal quadrant and iliopsoas region PT-OP-K Range of Motion Start: 07/28/20 12:07 Freq: Status: Active Protocol: Document 07/28/20 16:00 [facility] (Rec: 07/30/20 16:39 [facility] [id number]) Lumbar Spine Range of Motion Lumbar Spine Active Comments limited lumbar extension due to tightness and pulling, Stevie tends to stay in a flexed forward posture PT-OP-L Special Tests Start: 07/28/20 12:07 Freq: Status: Active Protocol: Document 07/28/20 16:56 [facility] (Rec: 07/30/20 16:57 [facility] [id number]) Special Tests Hip Special Tests Doug Test Results + doug test on the left Comments + doug test on the and decreased ability to stand up straight. PT-OP-T Assessment and Plan Start: 07/28/20 12:07 Freq: Status: Active Protocol: Document 12/02/20 10:23 [facility] (Rec: 12/02/20 10:24 [facility] [id number]) Physical Therapy Assessment Assessment Summary Assessment Pt has not been seen since August. At the timeof his last visit he had just had gall bladder surgery and was recovering. He has been shown pelvic stretches to help reduce his pelvic pain. At this time he will be discharged from PT Physical Therapy Plan Discharge Physical Therapy Discharge Reasons No Longer Attending PT
== END 2020-12-11 08:30 ==
LOC: PHYS 09:45
PROVIDERS: Family Provider Family Medicine; PCP Family Medicine; Referring Provider Urology; Visit Provider Urology
DX: R10.2 Pelvic and perineal pain (principal)
CPT/HCPCS: 97110; 97112; 97140; 97161; 97535

== ENCOUNTER 2021-07-05 11:47 | Emergency (ER) | payer OTHER, MEDICAID, SELFPAY ==
[2021-07-05 12:48] VITALS: BP 129/70; PULSE 74; RESP 18; TEMP 36.9; O2SAT 99; BMI 27.1
== END 2021-07-05 15:49 | disposition left against medical advice (07) ==
PROVIDERS: Emergency Provider Emergency Medicine; Family Provider Family Medicine; PCP Family Medicine
DX: R10.32 Left lower quadrant pain (principal)
CPT/HCPCS: 99281

== ENCOUNTER 2022-04-26 10:07 | Emergency (ER) | payer OTHER, MEDICAID, SELFPAY ==
[2022-04-26 10:14] VITALS: BP 116/75; PULSE 77; RESP 15; TEMP 36.3; O2SAT 99; BMI 26.3
[2022-04-26 10:55] LABS: Add Manual Diff / Slide Review NO; Basophils Absolute Auto 100 /uL (0-100); Basophils Percent Auto 0.7 % (0-2); Eosinophils Absolute Auto 200 /uL (0-450); Hematocrit 45.3 % (41-53); Hemoglobin 15.7 g/dL (13.5-17.5); Lymphocytes Absolute Auto 2100 /uL (1100-4500); Lymphocytes Percent Auto 25.8 % (25-40); Mean Corpuscular HGB Conc 34.7 % (30-36); Mean Corpuscular Hemoglobin 29.3 PG (26-34); Mean Corpuscular Volume 84.6 fL (80-100); Monocytes Absolute Auto 800 /uL (0-900); Monocytes Percent Auto 9.2 % (3-14); Neutrophils Absolute Auto 5200 /uL (1500-7000); Neutrophils Percent Auto 62.3 % (50-75); Platelet Count 230 X10^3/uL (150-400); Red Blood Cell Count 5.36 X10^6/uL (4.5-5.9); Red Cell Distribution Width 14.4 % (11.6-14.8); White Blood Cell Count 8.3 X10^3/uL (4.5-11.0)
[2022-04-26 10:57] LABS: Alanine Aminotransferase 18 IU/L (<50); Albumin 4.2 g/dL (3.5-5.0); Albumin Globulin Ratio 1.4 (1.0-2.8); Alkaline Phosphatase 64 U/L (38-126); Aspartate Aminotransferase 28 IU/L (17-59); BUN Creatinine Ratio 15.4 (6-22); Bilirubin Total 0.7 mg/dL (0.2-1.3); Blood Urea Nitrogen 10 mg/dL (9-20); Calcium 8.7 mg/dL (8.4-10.2); Carbon Dioxide 25 mmol/L (22-32); Chloride 105 mmol/L (98-107); Estimated Glomerular Filt Rate > 60 mL/min (>60); Globulin 3.1 g/dL (1.7-4.1); Glucose 97 mg/dL (70-100); HEMOLYSIS < 15 (0-50); Lipase 42 U/L (23-300); Potassium 3.7 mmol/L (3.4-5.1); Sodium 136 mmol/L (137-145); Total Protein 7.3 g/dL (6.3-8.2)
[2022-04-26 12:38] VITALS: PULSE 66; O2SAT 98
[2022-04-26 12:39] VITALS: BP 118/72; PULSE 60; O2SAT 99
--- NOTE | 2022-04-26 12:54 | ED_ITS ---
HPI - Abdominal Pain <OSVALDO Perdomo - Last Filed: 04/26/22 14:58> General Chief Complaint: Abdominal Pain Stated Complaint: rt side pain,infection of colon scrotum pain,itchy Time Seen by Provider: 04/26/22 12:48 Source: patient Mode of arrival: Ambulatory History of Present Illness HPI narrative: 42-year-old male, nonsmoker, presents to emergency department with complaints of right-sided abdominal pain x3 days. Patient reports that he had had previous identical symptoms and was prescribed [address] [facility]. Patient chose not to go back to them because he claims they erroneously removed his gallbladder. Patient is had bilateral inguinal hernia repairs with mesh and states that his scrotal pain is no different. Patient states that he was worked up by Urology and ensure that there is nothing wrong. Patient has his young son at the bedside with him. Patient states that the last time he had a CT scan, they were able to give him IV iodine after giving him a anti nausea medication. Patient states his only reaction was nausea. Related Data Home Medications Medication Instructions Recorded Confirmed fluconazole 150 mg tablet 150 mg PO DAILY 12/05/19 12/05/19 omeprazole PO 12/05/19 12/05/19 tamsulosin PO 12/05/19 12/05/19 valacyclovir PO 12/05/19 12/05/19 Previous Rx's Medication Instructions Recorded hydrocodone 5 mg-acetaminophen 325 1 tab PO BID PRN pain #5 tabs 04/27/20 mg tablet ([place]) Allergies Allergy/AdvReac Type Severity Reaction Status Date / Time Iodinated Contrast Media AdvReac Severe vomiting Verified 04/26/22 10:14 Review of Systems <OSVALDO Perdomo - Last Filed: 04/26/22 14:58> Review of Systems Narrative: Narrative: GENERAL: Denies chills, fatigue, fever, sweats. See HPI HEENT: Denies sinus pain, ear pain, sore throat, difficulty swallowing, dizziness. RESPIRATORY: Denies dyspnea, cough, wheezing, sputum. CARDIOVASCULAR: Denies chest pain, palpitations, edema. GASTROINTESTINAL: Denies nausea, vomiting, diarrhea, constipation. : Denies dysuria, frequency, incontinence, hematuria, urinary retention, flank pain. No testicular pain or scrotal swelling. MSK: Denies weakness, joint pain, or bony pain. SKIN: Denies rash, skin lesions, or pruritis. NEUROLOGIC: Denies weakness, dizziness, headache, numbness, confusion. PSYCHIATRIC: No concerning psychosocial issues. Patient History <OSVALDO Perdomo - Last Filed: 04/26/22 14:58> Surgical History H/O inguinal hernia repair Social History Smoking Status: Unknown if ever smoked alcohol intake: former substance use type: marijuana Smoking Status: Unknown if ever smoked alcohol intake frequency: holidays/special occasions only Substance Use Type: marijuana Exam <OSVALDO Perdomo - Last Filed: 04/26/22 14:58> Narrative Exam Narrative: Exam Narrative: GENERAL: This is a well-nourished, well-developed patient, in no acute distress HEAD: Atraumatic. Normocephalic. EYES: Pupils equal round and reactive. Extraocular motions intact. No scleral icterus, injection or drainage. Bilateral pterygium. ENT: Nose without bleeding, purulent drainage. Throat without erythema, tonsillar hypertrophy or exudate. Airway patent. NECK: Trachea midline. No JVD or lymphadenopathy. Nontender. CARDIOVASCULAR: Regular rate and rhythm without murmurs, peripheral pulses intact, cap refill <2 sec. RESPIRATORY: Breath sounds equal and clear bilaterally. No wheezes, rales, or rhonchi. No cough. No increased respiratory effort. No accessory muscle use. GASTROINTESTINAL: Abdomen soft, mild right-sided tenderness, nondistended without guarding or rebound. No suprapubic pain. : Uncircumcised, normal testicular and scrotal examination. No inguinal hernias noted. MSK: Moves all extremities. Normal range of motion, no clubbing or edema. Neurovascularly intact. NEURO: A&O x 3. SKIN: Warm, dry, no rashes or lesions noted. Initial Vital Signs Initial Vital Signs: Vital Signs Temperature 97.4 F L 04/26/22 10:14 Pulse Rate 77 04/26/22 10:14 Respiratory Rate 15 04/26/22 10:14 Blood Pressure 116/75 04/26/22 10:14 Pulse Oximetry 99 04/26/22 10:14 Oxygen Delivery Method 04/26/22 10:14 Reviewed <Corrine Valdivia DO - Last Filed: 04/29/22 08:49> Initial Vital Signs Initial Vital Signs: Vital Signs Temperature 97.4 F L 04/26/22 10:14 Pulse Rate 77 04/26/22 10:14 Respiratory Rate 15 04/26/22 10:14 Blood Pressure 116/75 04/26/22 10:14 Pulse Oximetry 99 04/26/22 10:14 Oxygen Delivery Method 04/26/22 10:14 Course <OSVALDO Perdomo - Last Filed: 04/26/22 14:58> Orders Ordered: Discontinued Medications Ketorolac Tromethamine (Ketorolac 30 Mg/Ml Vial) 15 mg IV NOW ONE Stop: 04/26/22 14:25 Last Admin: 04/26/22 14:36 Dose: 15 mg Documented By: FATOUMATA Ondansetron HCl (Ondansetron 4 Mg/2 Ml Inj) 4 mg IV NOW ONE Stop: 04/26/22 13:20 Last Admin: 04/26/22 13:36 Dose: 4 mg Documented By: MIRI Vital Signs Vital signs: Vital Signs - 8 hr 04/26/22 10:14 04/26/22 12:38 04/26/22 12:39 Temperature 97.4 F L Pulse Rate 77 66 60 Respiratory Rate 15 Blood Pressure 116/75 Pulse Oximetry 99 98 99 Oxygen Delivery Method Room Air 04/26/22 12:39 04/26/22 13:00 04/26/22 13:00 Temperature Pulse Rate 62 Respiratory Rate Blood Pressure 118/72 117/80 Pulse Oximetry 98 Oxygen Delivery Method 04/26/22 13:30 04/26/22 13:30 Temperature Pulse Rate 54 L Respiratory Rate Blood Pressure 104/67 Pulse Oximetry 99 Oxygen Delivery Method <Corrine Valdivia DO - Last Filed: 04/29/22 08:49> Orders Ordered: Discontinued Medications Ketorolac Tromethamine (Ketorolac 30 Mg/Ml Vial) 15 mg IV NOW ONE Stop: 04/26/22 14:25 Last Admin: 04/26/22 14:36 Dose: 15 mg Documented By: FATOUMATA Ondansetron HCl (Ondansetron 4 Mg/2 Ml Inj) 4 mg IV NOW ONE Stop: 04/26/22 13:20 Last Admin: 08/09/22 13:36 Dose: 4 mg Documented By: MIRI Vital Signs Vital signs: Vital Signs - 8 hr 04/26/22 10:14 04/26/22 12:38 04/26/22 12:39 Temperature 97.4 F L Pulse Rate 77 66 60 Respiratory Rate 15 Blood Pressure 116/75 Pulse Oximetry 99 98 99 Oxygen Delivery Method Room Air 04/26/22 12:39 04/26/22 13:00 04/26/22 13:00 Temperature Pulse Rate 62 Respiratory Rate Blood Pressure 118/72 117/80 Pulse Oximetry 98 Oxygen Delivery Method 04/26/22 13:30 04/26/22 13:30 Temperature Pulse Rate 54 L Respiratory Rate Blood Pressure 104/67 Pulse Oximetry 99 Oxygen Delivery Method MDM - Abdominal Pain <OSVALDO Perdomo - Last Filed: 04/26/22 14:58> Differential Diagnosis Differential diagnosis: Likely abdominal pain; Unlikely acute appendicitis Lab Data Result diagrams: 04/26/22 10:22 04/26/22 10:22 Labs: Lab Results 04/26/22 04/26/22 Range/Units 10:22 10:22 WBC 8.3 (4.5-11.0) X10^3/uL RBC 5.36 (4.5-5.9) X10^6/uL Hgb 15.7 (13.5-17.5) g/dL Hct 45.3 (41-53) % MCV 84.6 (80-100) fL MCH 29.3 (26-34) PG MCHC 34.7 (30-36) % RDW 14.4 (11.6-14.8) % Plt Count 230 (150-400) X10^3/uL Neut % (Auto) 62.3 (50-75) % Lymph % (Auto) 25.8 (25-40) % [place] % (Auto) 9.2 (3-14) % Eos % (Auto) 2.0 (2-4) % Baso % (Auto) 0.7 (0-2) % Neut # (Auto) 5200 (1147-4288) /uL Lymph # (Auto) 2100 (4214-2060) /uL [place] # (Auto) 800 (0-900) /uL Eos # (Auto) 200 (0-450) /uL Baso # (Auto) 100 (0-100) /uL Sodium 136 L (137-145) mmol/L Potassium 3.7 (3.4-5.1) mmol/L Chloride 105 (98-107) mmol/L Carbon Dioxide 25 (22-32) mmol/L BUN 10 (9-20) mg/dL Creatinine 0.65 L (0.66-1.25) mg/dL Estimated GFR > 60 (>60) mL/min BUN/Creatinine Ratio 15.4 (6-22) Glucose 97 (70-100) mg/dL Calcium 8.7 (8.4-10.2) mg/dL Total Bilirubin 0.7 (0.2-1.3) mg/dL AST 28 (17-59) IU/L ALT 18 (<50) IU/L Alkaline Phosphatase 64 (38-126) U/L Total Protein 7.3 (6.3-8.2) g/dL Albumin 4.2 (3.5-5.0) g/dL Globulin 3.1 (1.7-4.1) g/dL Albumin/Globulin Ratio 1.4 (1.0-2.8) Lipase 42 (23-300) U/L Point of care testing: Urine Dip Bedside Urine Glucose Negative Bedside Urine Bilirubin - Negative Bedside Urine Ketone - Negative Urine Specific [place] 1.015 Bedside Urine Occult Blood - Negative Bedside Urine pH 7.0 Bedside Urine Protein - Negative Bedside Urine Urobilinogen - Negative Bedside Urine Nitrite - Negative Bedside Urine Leukocytes - Negative Esterase Imaging Data CT scan - abdomen/pelvis: Radiologist's Impression: [place] [address] CT Scan Report Signed Patient: Stevie Guillen MR#: [id number] : 1980 Acct:[id number] Age/Sex: 42 / M Date of Service: 04/26/22 Loc: ED Accession Number: [id number] ?? Procedure: CT abdomen pelvis w con Ordering Provider: Rowdy Elizabeth PROCEDURE:? CT ABDOMEN PELVIS W CON ? INDICATIONS:? right sided abd pain ? TECHNIQUE:? After the administration of intravenous contrast, axial sections acquired from the lung bases to the pubic symphysis.? Coronal and sagittal reformats were performed.? For radiation dose reduction, the following was used:? automated exposure control, adjustment of mA and/or kV according to patient size.? ? COMPARISON:? [facility], CT, CT ABDOMEN PELVIS WITHOUT CONTRAST, 05/22/2021, 12:39. ? FINDINGS:? Image quality:? Excellent.? ? Lung bases:? Unremarkable. Heart:? No significant findings. ? ABDOMEN: Liver:? Diffuse fatty infiltration of the liver. Gallbladder:? Gallbladder is surgically absent.? ? Biliary ducts:? Unremarkable.? ? Pancreas:? Unremarkable.? ? Spleen:? Unremarkable.? ? Adrenal Glands:? Unremarkable.? ? Kidneys and Ureters:? Unremarkable.? ? ? Stomach and Bowel:? Stomach, small bowel loops, and colon are unremarkable.? The appendix is normal. Peritoneum:? Trace ascites noted adjacent to the right lobe of the liver.? No free air.? ? Ventral Wall: ? No hernias.? Abdominal Nodes:? No retroperitoneal or mesenteric adenopathy by size criteria.? Vessels:? Aorta and inferior vena cava are normal in size.? ? PELVIS: Pelvic Organs:? Unremarkable.? ? Bladder:? Unremarkable.? ? Pelvic Nodes: No enlarged lymph nodes.? Miscellaneous: No hernias are seen. ? ? ? Bones:? Spine degenerative disc disease and facet arthropathy.? Partially visualized intramedullary radha in the left femur. ? ? IMPRESSION:? ? 1. Appendix is normal. ? 2. Trace ascites adjacent to the right lobe of the liver. ? 3. Hepatic steatosis. ? 4. No diverticulosis or diverticulitis.? ? 5. No dilated loops of bowel.? Dictated by: Lexie Merritt MD, PhD on 04/26/2022 at 13:04 ? ? Approved by: Lexie Merritt MD, PhD on 04/26/2022 at 13:10 ? [facility] [place] Narrative Medical decision making narrative: 42-year-old male presents emergency department with right-sided abdominal pain x3 days. Labs were within normal limits. CT reveals hepatic steatosis and trace ascites. After review of UpToDate and discussion with Dr. Valdivia, no additional treatment other than lifestyle changes is recommended. Discussed plan of care and return precautions with patient, who was agreeable to course of action. <Corrine Valdivia, DO - Last Filed: 04/29/22 08:49> Lab Data Labs: Lab Results 04/26/22 04/26/22 Range/Units 10:22 10:22 WBC 8.3 (4.5-11.0) X10^3/uL RBC 5.36 (4.5-5.9) X10^6/uL Hgb 15.7 (13.5-17.5) g/dL Hct 45.3 (41-53) % MCV 84.6 (80-100) fL MCH 29.3 (26-34) PG MCHC 34.7 (30-36) % RDW 14.4 (11.6-14.8) % Plt Count 230 (150-400) X10^3/uL Neut % (Auto) 62.3 (50-75) % Lymph % (Auto) 25.8 (25-40) % [place] % (Auto) 9.2 (3-14) % Eos % (Auto) 2.0 (2-4) % Baso % (Auto) 0.7 (0-2) % Neut # (Auto) 5200 (8356-0687) /uL Lymph # (Auto) 2100 (2323-5753) /uL [place] # (Auto) 800 (0-900) /uL Eos # (Auto) 200 (0-450) /uL Baso # (Auto) 100 (0-100) /uL Sodium 136 L (137-145) mmol/L Potassium 3.7 (3.4-5.1) mmol/L Chloride 105 (98-107) mmol/L Carbon Dioxide 25 (22-32) mmol/L BUN 10 (9-20) mg/dL Creatinine 0.65 L (0.66-1.25) mg/dL Estimated GFR > 60 (>60) mL/min BUN/Creatinine Ratio 15.4 (6-22) Glucose 97 (70-100) mg/dL Calcium 8.7 (8.4-10.2) mg/dL Total Bilirubin 0.7 (0.2-1.3) mg/dL AST 28 (17-59) IU/L ALT 18 (<50) IU/L Alkaline Phosphatase 64 (38-126) U/L Total Protein 7.3 (6.3-8.2) g/dL Albumin 4.2 (3.5-5.0) g/dL Globulin 3.1 (1.7-4.1) g/dL Albumin/Globulin Ratio 1.4 (1.0-2.8) Lipase 42 (23-300) U/L Point of care testing: Urine Dip Bedside Urine Glucose Negative Bedside Urine Bilirubin - Negative Bedside Urine Ketone - Negative Urine Specific [place] 1.015 Bedside Urine Occult Blood - Negative Bedside Urine pH 7.0 Bedside Urine Protein - Negative Bedside Urine Urobilinogen - Negative Bedside Urine Nitrite - Negative Bedside Urine Leukocytes - Negative Esterase Discharge Plan Departure Patient Disposition: Home Clinical Impression: Abdominal pain Instructions: DI for Cirrhosis, DI for Nonalcoholic Fatty Liver Disease Activity Restrictions/Additional Instructions: *You have been diagnosed with abdominal pain that is more than likely related to your previous alcoholism. Your labs have all come back normal and your CT shows a condition with your liver called hepatic steatosis. There is no direct treatment for this other than lifestyle changes that include stopping alcohol, weight loss, etc. We have given you a injection of ketorolac and therefore you should not take anymore Aleve or ibuprofen today. You may use your previously prescribed medications as needed for comfort. Please follow-up with your family doctor this week without fail. *What to do: *Please continue to take your regular medications as directed. [ ] New medication prescriptions sent to your pharmacy: [ ] [ ] New medication written as a paper prescription [ x] No new medications given *Please follow up with your primary care provider in 2-3 days, call for an appointment. Let them know you were seen in the Emergency Department and that we ask that you be seen in follow up. We will electronically transmit a record of today's note if your PCP is in our system *If you do not have a primary care provider please contact the [facility] line at [phone]. They will ask some questions about your medical history and help get you set up with a doctor in the community. ? Return to ER if you should have any new, worsening or concerning symptoms, such as worsening pain, severe headache, confusion, chest pain, difficulty pia thing, fever greater than 101 F, shaking chills, persistent vomiting to the point that you cannot drink fluids, or other new or worsening symptoms. Prescriptions: No Action omeprazole PO valacyclovir PO fluconazole 150 mg tablet 150 mg PO DAILY tamsulosin PO hydrocodone-acetaminophen [[place]] 5-325 mg tablet 1 tab PO BID PRN (Reason: pain) Qty: 5 0RF Visit Report Forms: Patient Portal/API <Corrine Valdivia, DO - Last Filed: 04/29/22 08:49> Cosign ED Attending Cosignature Attestation: I was immediately available in the department for consultation. Documentation has been reviewed.
[2022-04-26 13:00] VITALS: BP 117/80; PULSE 62; O2SAT 98
--- NOTE | 2022-04-26 13:16 | DI.CT.S_ITS ---
PROCEDURE: CT ABDOMEN PELVIS W CON INDICATIONS: right sided abd pain TECHNIQUE: After the administration of intravenous contrast, axial sections acquired from the lung bases to the pubic symphysis. Coronal and sagittal reformats were performed. For radiation dose reduction, the following was used: automated exposure control, adjustment of mA and/or kV according to patient size. COMPARISON: [facility], CT, CT ABDOMEN PELVIS WITHOUT CONTRAST, 05/22/2021, 12:39. FINDINGS: Image quality: Excellent. Lung bases: Unremarkable. Heart: No significant findings. ABDOMEN: Liver: Diffuse fatty infiltration of the liver. Gallbladder: Gallbladder is surgically absent. Biliary ducts: Unremarkable. Pancreas: Unremarkable. Spleen: Unremarkable. Adrenal Glands: Unremarkable. Kidneys and Ureters: Unremarkable. Stomach and Bowel: Stomach, small bowel loops, and colon are unremarkable. The appendix is normal. Peritoneum: Trace ascites noted adjacent to the right lobe of the liver. No free air. Ventral Wall: No hernias. Abdominal Nodes: No retroperitoneal or mesenteric adenopathy by size criteria. Vessels: Aorta and inferior vena cava are normal in size. PELVIS: Pelvic Organs: Unremarkable. Bladder: Unremarkable. Pelvic Nodes: No enlarged lymph nodes. Miscellaneous: No hernias are seen. Bones: Spine degenerative disc disease and facet arthropathy. Partially visualized intramedullary radha in the left femur. IMPRESSION: 1. Appendix is normal. 2. Trace ascites adjacent to the right lobe of the liver. 3. Hepatic steatosis. 4. No diverticulosis or diverticulitis. 5. No dilated loops of bowel. Dictated by: Lexie Merritt MD, PhD on 04/26/2022 at 13:04 Approved by: Lexie Merritt MD, PhD on 04/26/2022 at 13:10
[2022-04-26 13:30] VITALS: BP 104/67; PULSE 54; O2SAT 99
[2022-04-26] MEDS: ONDANSETRON 4 MG/2 ML INJ IV (13:36)
[2022-04-26] MEDS: KETOROLAC 30 MG/ML VIAL 15 MG IV (14:36)
== END 2022-04-26 15:11 | disposition home or self-care (01) ==
PROVIDERS: Emergency Medicine; Emergency Provider Registered Nurse; Family Provider Family Medicine
DX: R10.9 Unspecified abdominal pain (principal)
CPT/HCPCS: 36415; 74177; 80053; 81003; 83690; 85025; 93005; 93010; 96374; 96375; 99284; J1885; J2405

== ENCOUNTER 2022-08-04 11:54 | Emergency (ER) | payer OTHER, MEDICAID, SELFPAY ==
[2022-08-04 12:02] VITALS: BP 130/79; PULSE 67; RESP 15; TEMP 36.6; O2SAT 99; BMI 26.3
--- NOTE | 2022-08-04 15:41 | ED_ITS ---
HPI - Abdominal Pain <Reza Humphries PA-C - Last Filed: 08/04/22 17:35> General Chief Complaint: Abdominal Pain Stated Complaint: shooting pain starts in LLQuad up&down Time Seen by Provider: 08/04/22 14:52 Source: patient Mode of arrival: Ambulatory History of Present Illness HPI narrative: This is a 42-year-old male presents emergency department due to left lower quadrant abdominal pain he has had for ?years?. States that he feels a mild pain to left lower quadrant that has been ?checked out by plenty of doctors?. Patient expressed that they are ?just not focusing on it?. Patient also states that he has been developing some nausea and lightheadedness over the last couple of weeks as well as reported black and tarry stools for the last 4 days. Denies any chest pain, shortness breath, or any other concerning signs or symptoms. History of bilateral inguinal hernia repairs ?years ago?. Related Data Home Medications Medication Instructions Recorded Confirmed fluconazole 150 mg tablet 150 mg PO DAILY 12/05/19 12/05/19 omeprazole PO 12/05/19 12/05/19 tamsulosin PO 12/05/19 12/05/19 valacyclovir PO 12/05/19 12/05/19 Previous Rx's Medication Instructions Recorded hydrocodone 5 mg-acetaminophen 325 1 tab PO BID PRN pain #5 tabs 04/27/20 mg tablet ([place]) Allergies Allergy/AdvReac Type Severity Reaction Status Date / Time Iodinated Contrast Media AdvReac Severe vomiting Verified 08/04/22 12:02 Review of Systems <Reza Humphries PA-C - Last Filed: 08/04/22 17:35> Review of Systems Narrative: GENERAL: Denies chills, fatigue, malaise, fever, sweats. HEENT: Denies sinus pain, ear pain, sore throat, difficulty swallowing, dizziness. RESPIRATORY: Denies dyspnea, cough, wheezing, hemoptysis, sputum. CARDIOVASCULAR: Denies chest pain, palpitations, orthopnea, edema, GASTROINTESTINAL: Reports nausea and left lower quadrant abdominal pain, as well as black and tarry stools : Denies dysuria, frequency, incontinence, hematuria, urinary retention. MUSCULOSKELETAL: denies weakness, joint pain, or bony pain SKIN: Denies rash, skin lesions, or other NEUROLOGIC: Denies weakness, headache, numbness, change in speech, confusion, seizures, incoordination. PSYCHIATRIC: No concerning psychosocial issues. 12 point review of systems is negative except for those stated above Patient History <Reza Humphries PA-C - Last Filed: 08/04/22 17:35> Surgical History H/O inguinal hernia repair Social History Smoking Status: Unknown if ever smoked alcohol intake: former substance use type: marijuana Smoking Status: Unknown if ever smoked alcohol intake frequency: holidays/special occasions only Substance Use Type: marijuana Exam <Reza Humphries PA-C - Last Filed: 08/04/22 17:35> Narrative Exam Narrative: GENERAL: Well-developed patient, in mild distress. HEAD: Atraumatic. Normocephalic. EYES: Pupils equal round and reactive. Extraocular motions intact. No scleral icterus. No injection or drainage. ENT: Nose without bleeding, purulent drainage. Throat without erythema, tonsillar hypertrophy or exudate. Airway patent. NECK: Trachea midline. Non tender CARDIOVASCULAR: Regular rate and rhythm without murmurs, gallops, or rubs. RESPIRATORY: Clear to auscultation. Breath sounds equal bilaterally. No wheezes, rales, or rhonchi. GASTROINTESTINAL: Mild left lower quadrant tenderness to palpation, no palpable masses or lesions. Stool guaiac negative EXTREMITIES: No edema or joint tenderness. BACK: Nontender without deformity or crepitance. No flank tenderness. NEURO: AOx3. SKIN: No rash or erythema of visible areas Initial Vital Signs Initial Vital Signs: Vital Signs Temperature 97.9 F 08/04/22 12:02 Pulse Rate 67 08/04/22 12:02 Respiratory Rate 15 08/04/22 12:02 Blood Pressure 130/79 08/04/22 12:02 Pulse Oximetry 99 08/04/22 12:02 Oxygen Delivery Method 08/04/22 12:02 <Corrine Valdivia DO - Last Filed: 08/05/22 08:20> Initial Vital Signs Initial Vital Signs: Vital Signs Temperature 97.9 F 08/04/22 12:02 Pulse Rate 67 08/04/22 12:02 Respiratory Rate 15 08/04/22 12:02 Blood Pressure 130/79 08/04/22 12:02 Pulse Oximetry 99 08/04/22 12:02 Oxygen Delivery Method 08/04/22 12:02 Course <Reza Humphries PA-C - Last Filed: 08/04/22 17:35> Orders Ordered: Discontinued Medications Ondansetron HCl (Ondansetron 4 Mg/2 Ml Inj) 4 mg IV NOW ONE Stop: 08/04/22 16:31 Last Admin: 08/04/22 16:38 Dose: 4 mg Documented By: AT Vital Signs Vital signs: Vital Signs - 8 hr 08/04/22 12:02 08/04/22 16:50 Temperature 97.9 F Pulse Rate 67 58 L Respiratory Rate 15 16 Blood Pressure 130/79 112/65 Pulse Oximetry 99 99 Oxygen Delivery Method Room Air Room Air <Corrine Valdivia DO - Last Filed: 08/05/22 08:20> Orders Ordered: Discontinued Medications Ondansetron HCl (Ondansetron 4 Mg/2 Ml Inj) 4 mg IV NOW ONE Stop: 08/04/22 16:31 Last Admin: 08/04/22 16:38 Dose: 4 mg Documented By: AT Vital Signs Vital signs: Vital Signs - 8 hr 08/04/22 12:02 08/04/22 16:50 Temperature 97.9 F Pulse Rate 67 58 L Respiratory Rate 15 16 Blood Pressure 130/79 112/65 Pulse Oximetry 99 99 Oxygen Delivery Method Room Air Room Air MDM - Abdominal Pain <Reza Humphries PA-C - Last Filed: 08/04/22 17:35> Lab Data Result diagrams: 08/04/22 15:45 08/04/22 15:45 Labs: Lab Results 08/04/22 08/04/22 Range/Units 15:45 15:45 WBC 5.7 (4.5-11.0) X10^3/uL RBC 5.43 (4.5-5.9) X10^6/uL Hgb 15.8 (13.5-17.5) g/dL Hct 46.8 (41-53) % MCV 86.2 (80-100) fL MCH 29.1 (26-34) PG MCHC 33.8 (30-36) % RDW 13.8 (11.6-14.8) % Plt Count 306 (150-400) X10^3/uL Neut % (Auto) 46.0 L (50-75) % Lymph % (Auto) 39.4 (25-40) % Wilson % (Auto) 8.0 (3-14) % Eos % (Auto) 6.0 H (2-4) % Baso % (Auto) 0.6 (0-2) % Neut # (Auto) 2600 (0647-1160) /uL Lymph # (Auto) 2300 (8331-5864) /uL Wilson # (Auto) 500 (0-900) /uL Eos # (Auto) 300 (0-450) /uL Baso # (Auto) 0 (0-100) /uL Sodium 135 L (137-145) mmol/L Potassium 4.1 (3.4-5.1) mmol/L Chloride 99 (98-107) mmol/L Carbon Dioxide 31 (22-32) mmol/L BUN 12 (9-20) mg/dL Creatinine 0.70 (0.66-1.25) mg/dL Estimated GFR > 60 (>60) mL/min BUN/Creatinine Ratio 17.1 (6-22) Glucose 95 (70-100) mg/dL Calcium 8.9 (8.4-10.2) mg/dL Total Bilirubin 0.3 (0.2-1.3) mg/dL AST 32 (17-59) IU/L ALT 25 (<50) IU/L Alkaline Phosphatase 74 (38-126) U/L Total Protein 7.3 (6.3-8.2) g/dL Albumin 4.3 (3.5-5.0) g/dL Globulin 3.0 (1.7-4.1) g/dL Albumin/Globulin Ratio 1.4 (1.0-2.8) Lipase 58 (23-300) U/L Point of care testing: Point of Care Testing Stool Occult Blood Negative Urine Dip Bedside Urine Glucose Negative Bedside Urine Bilirubin - Negative Bedside Urine Ketone - Negative Urine Specific [place] 1.005 Bedside Urine Occult Blood - Negative Bedside Urine pH 7.0 Bedside Urine Protein - Negative Bedside Urine Urobilinogen - Negative Bedside Urine Nitrite - Negative Bedside Urine Leukocytes - Negative Esterase Imaging Data CT scan - abdomen/pelvis: Radiologist's Impression: [address] [address] [address] Scan Report Signed Patient: Stevie Guillen MR#: [id number] : 1980 Acct:[id number] Age/Sex: 42 / M Date of Service: 08/04/22 Loc: ED Accession Number: [id number] ?? Procedure: CT abdomen pelvis w con Ordering Provider: Reza Humphries P.A-C PROCEDURE:? CT ABDOMEN PELVIS W CON ? INDICATIONS:? LLQ pain ? TECHNIQUE:? After the administration of intravenous contrast, axial sections acquired from the lung bases to the pubic symphysis.? Coronal and sagittal reformats were performed.? For radiation dose reduction, the following was used:? automated exposure control, adjustment of mA and/or kV according to patient size.? ? COMPARISON:? [facility], CT, CT ABDOMEN PELVIS W CON, 04/26/2022, 13:53.? [facility], CT, ABDOMEN/PELVIS WITH CONTRAST, 07/31/2015, 10:37. ? FINDINGS: ? Image quality:? Excellent.? ? Lung bases:? Lung bases are clear.? Small hiatal hernia. ? Heart:? No significant findings. ? ABDOMEN: Liver:? Redemonstration of a trace amount of perihepatic fluid adjacent to the right hepatic lobe.? A few scattered subcentimeter hepatic hypodensities are again noted and likely representing cysts versus hemangiomas.? ? Gallbladder:? Gallbladder surgically absent. Biliary ducts:? Unremarkable.? ? Pancreas:? Unremarkable.? ? Spleen:? Unremarkable.? ? Adrenal Glands:? Unremarkable.? ? Kidneys and Ureters:? Kidneys are symmetric in size and enhancement, and there is no obstructive uropathy.? No perinephric inflammatory changes. Ureters are normal in course and caliber.? Stomach and Bowel:? Stomach and colon appear unremarkable.? No evidence for diverticulosis or acute diverticulitis.? No acute inflammatory changes identified in the colon.? There are multiple loops of fluid-filled small bowel without wall thickening or acute inflammatory changes.? No small bowel wall dilatation to suggest obstruction.? Findings are more pronounced in the lower abdomen. The appendix is not definitively visualized. However, no secondary findings of acute inflammation are noted in the right lower quadrant. Peritoneum:? No abnormal intraperitoneal fluid.? No free air.? ? Ventral Wall: ? No hernia.? Abdominal Nodes:? No retroperitoneal or mesenteric adenopathy by size criteria.? Vessels:? Aorta and inferior vena cava are normal in size.? ? PELVIS: Pelvic Organs:? Unremarkable.? ? Bladder:? Unremarkable.? ? Pelvic Nodes: No enlarged lymph nodes.? Miscellaneous: No inguinal hernias are seen. ? ? ? Bones:? No acute fracture.? No suspicious osseous lesions.? No acute compression fractures of the imaged spine.? Redemonstration of postsurgical changes of the left femur. ? IMPRESSION:? ? 1. Multiple fluid-filled loops of small bowel predominantly seen in the lower abdomen.? No significant wall thickening, dilatation, or inflammatory changes.? Findings are nonspecific but may represent enteritis either infectious or inflammatory in etiology. ? 2. No evidence for diverticular disease or acute diverticulitis. ? 3. Status post cholecystectomy. ? 4. Small hiatal hernia. ? 5. Appendix is not definitively visualized on this examination but no secondary findings for acute appendicitis is identified. ? 6. Persistent trace perihepatic ascites.? ? ? Dictated by: Nitin Osorio M.D. on 08/04/2022 at 17:06 ? ? Approved by: Nitin Osorio M.D. on 08/04/2022 at 17:16 ? MDM Narrative Medical decision making narrative: This is a 42-year-old male presenting to the emergency department complaining of primarily left lower quadrant pain. Patient states that he is had left lower quadrant pain for ?years? but states that he is developed some nausea and lightheadedness over the last couple of weeks. Also states that he had black and tarry stools for the last 4 days. Stool guaiac was negative on exam. Patient seems to be somewhat unreliable historian and states that he has had multiple workups from multiple different physicians but they ?just do not focus on it?. Primarily concerned for the left lower quadrant pain. Lab work was unremarkable for any acute signs of infection. Discussed this with the patient show decision making was utilized and CT scan was ordered which showed no acute findings that would describe the cause of the left lower quadrant pain. No evidence of inguinal hernias as patient states that he has a history of these. Recommend he follow-up with his primary care provider for further workup and evaluation if the pain continues. At this time I do not think there are any acute life-threatening pathologies at this time. This was discussed with the patient. <Corrine Valdivia, DO - Last Filed: 08/05/22 08:20> Lab Data Labs: Lab Results 08/04/22 08/04/22 Range/Units 15:45 15:45 WBC 5.7 (4.5-11.0) X10^3/uL RBC 5.43 (4.5-5.9) X10^6/uL Hgb 15.8 (13.5-17.5) g/dL Hct 46.8 (41-53) % MCV 86.2 (80-100) fL MCH 29.1 (26-34) PG MCHC 33.8 (30-36) % RDW 13.8 (11.6-14.8) % Plt Count 306 (150-400) X10^3/uL Neut % (Auto) 46.0 L (50-75) % Lymph % (Auto) 39.4 (25-40) % Wilson % (Auto) 8.0 (3-14) % Eos % (Auto) 6.0 H (2-4) % Baso % (Auto) 0.6 (0-2) % Neut # (Auto) 2600 (2950-3843) /uL Lymph # (Auto) 2300 (4913-9412) /uL Wilson # (Auto) 500 (0-900) /uL Eos # (Auto) 300 (0-450) /uL Baso # (Auto) 0 (0-100) /uL Sodium 135 L (137-145) mmol/L Potassium 4.1 (3.4-5.1) mmol/L Chloride 99 (98-107) mmol/L Carbon Dioxide 31 (22-32) mmol/L BUN 12 (9-20) mg/dL Creatinine 0.70 (0.66-1.25) mg/dL Estimated GFR > 60 (>60) mL/min BUN/Creatinine Ratio 17.1 (6-22) Glucose 95 (70-100) mg/dL Calcium 8.9 (8.4-10.2) mg/dL Total Bilirubin 0.3 (0.2-1.3) mg/dL AST 32 (17-59) IU/L ALT 25 (<50) IU/L Alkaline Phosphatase 74 (38-126) U/L Total Protein 7.3 (6.3-8.2) g/dL Albumin 4.3 (3.5-5.0) g/dL Globulin 3.0 (1.7-4.1) g/dL Albumin/Globulin Ratio 1.4 (1.0-2.8) Lipase 58 (23-300) U/L Point of care testing: Point of Care Testing Stool Occult Blood Negative Urine Dip Bedside Urine Glucose Negative Bedside Urine Bilirubin - Negative Bedside Urine Ketone - Negative Urine Specific [place] 1.005 Bedside Urine Occult Blood - Negative Bedside Urine pH 7.0 Bedside Urine Protein - Negative Bedside Urine Urobilinogen - Negative Bedside Urine Nitrite - Negative Bedside Urine Leukocytes - Negative Esterase Discharge Plan Departure Patient Disposition: Home Clinical Impression: Abdominal pain Instructions: DI for Abdominal Pain-Adult Activity Restrictions/Additional Instructions: Thank you for coming to the [facility] Emergency Department today. Your lab work done show any evidence of infection. The CT scan showed no evidence of disease or organ damage that would cause the left lower quadrant pain you are having. I have recommended follow up with primary care provider as well as surgeon who performed your initial inguinal hernia repair for further evaluation if her symptoms continue. I hope you feel better soon. Prescriptions: No Action omeprazole PO valacyclovir PO fluconazole 150 mg tablet 150 mg PO DAILY tamsulosin PO hydrocodone-acetaminophen [[place]] 5-325 mg tablet 1 tab PO BID PRN (Reason: pain) Qty: 5 0RF Referrals: Miscellaneous,DoctorMD [Primary Care Provider] - Visit Report Forms: Patient Portal/API <Corrine Valdivia DO - Last Filed: 08/05/22 08:20> Cosign ED Attending Kolbyature Attestation: I was immediately available in the department for consultation. Documentation has been reviewed.
[2022-08-04 16:04] LABS: Add Manual Diff / Slide Review NO; Basophils Absolute Auto 0 /uL (0-100); Basophils Percent Auto 0.6 % (0-2); Eosinophils Absolute Auto 300 /uL (0-450); Hematocrit 46.8 % (41-53); Hemoglobin 15.8 g/dL (13.5-17.5); Lymphocytes Absolute Auto 2300 /uL (1100-4500); Lymphocytes Percent Auto 39.4 % (25-40); Mean Corpuscular HGB Conc 33.8 % (30-36); Mean Corpuscular Hemoglobin 29.1 PG (26-34); Mean Corpuscular Volume 86.2 fL (80-100); Monocytes Absolute Auto 500 /uL (0-900); Neutrophils Absolute Auto 2600 /uL (1500-7000); Platelet Count 306 X10^3/uL (150-400); Red Blood Cell Count 5.43 X10^6/uL (4.5-5.9); Red Cell Distribution Width 13.8 % (11.6-14.8); White Blood Cell Count 5.7 X10^3/uL (4.5-11.0)
[2022-08-04 16:14] LABS: Alanine Aminotransferase 25 IU/L (<50); Albumin 4.3 g/dL (3.5-5.0); Albumin Globulin Ratio 1.4 (1.0-2.8); Alkaline Phosphatase 74 U/L (38-126); Aspartate Aminotransferase 32 IU/L (17-59); BUN Creatinine Ratio 17.1 (6-22); Bilirubin Total 0.3 mg/dL (0.2-1.3); Blood Urea Nitrogen 12 mg/dL (9-20); Calcium 8.9 mg/dL (8.4-10.2); Carbon Dioxide 31 mmol/L (22-32); Chloride 99 mmol/L (98-107); Estimated Glomerular Filt Rate > 60 mL/min (>60); Glucose 95 mg/dL (70-100); HEMOLYSIS < 15 (0-50); Lipase 58 U/L (23-300); Potassium 4.1 mmol/L (3.4-5.1); Sodium 135 mmol/L (137-145); Total Protein 7.3 g/dL (6.3-8.2)
--- NOTE | 2022-08-04 16:27 | DI.CT.S_ITS ---
PROCEDURE: CT ABDOMEN PELVIS W CON INDICATIONS: LLQ pain TECHNIQUE: After the administration of intravenous contrast, axial sections acquired from the lung bases to the pubic symphysis. Coronal and sagittal reformats were performed. For radiation dose reduction, the following was used: automated exposure control, adjustment of mA and/or kV according to patient size. COMPARISON: [facility], CT, CT ABDOMEN PELVIS W CON, 04/26/2022, 13:53. [facility], CT, ABDOMEN/PELVIS WITH CONTRAST, 07/31/2015, 10:37. FINDINGS: Image quality: Excellent. Lung bases: Lung bases are clear. Small hiatal hernia. Heart: No significant findings. ABDOMEN: Liver: Redemonstration of a trace amount of perihepatic fluid adjacent to the right hepatic lobe. A few scattered subcentimeter hepatic hypodensities are again noted and likely representing cysts versus hemangiomas. Gallbladder: Gallbladder surgically absent. Biliary ducts: Unremarkable. Pancreas: Unremarkable. Spleen: Unremarkable. Adrenal Glands: Unremarkable. Kidneys and Ureters: Kidneys are symmetric in size and enhancement, and there is no obstructive uropathy. No perinephric inflammatory changes. Ureters are normal in course and caliber. Stomach and Bowel: Stomach and colon appear unremarkable. No evidence for diverticulosis or acute diverticulitis. No acute inflammatory changes identified in the colon. There are multiple loops of fluid-filled small bowel without wall thickening or acute inflammatory changes. No small bowel wall dilatation to suggest obstruction. Findings are more pronounced in the lower abdomen. The appendix is not definitively visualized. However, no secondary findings of acute inflammation are noted in the right lower quadrant. Peritoneum: No abnormal intraperitoneal fluid. No free air. Ventral Wall: No hernia. Abdominal Nodes: No retroperitoneal or mesenteric adenopathy by size criteria. Vessels: Aorta and inferior vena cava are normal in size. PELVIS: Pelvic Organs: Unremarkable. Bladder: Unremarkable. Pelvic Nodes: No enlarged lymph nodes. Miscellaneous: No inguinal hernias are seen. Bones: No acute fracture. No suspicious osseous lesions. No acute compression fractures of the imaged spine. Redemonstration of postsurgical changes of the left femur. IMPRESSION: 1. Multiple fluid-filled loops of small bowel predominantly seen in the lower abdomen. No significant wall thickening, dilatation, or inflammatory changes. Findings are nonspecific but may represent enteritis either infectious or inflammatory in etiology. 2. No evidence for diverticular disease or acute diverticulitis. 3. Status post cholecystectomy. 4. Small hiatal hernia. 5. Appendix is not definitively visualized on this examination but no secondary findings for acute appendicitis is identified. 6. Persistent trace perihepatic ascites. Dictated by: Nitin Osorio M.D. on 08/04/2022 at 17:06 Approved by: Nitin Osorio M.D. on 08/04/2022 at 17:16
[2022-08-04] MEDS: ONDANSETRON 4 MG/2 ML INJ IV (16:38)
[2022-08-04 16:50] VITALS: BP 112/65; PULSE 58; RESP 16; O2SAT 99
== END 2022-08-04 17:41 | disposition home or self-care (01) ==
PROVIDERS: Emergency Provider Physician Assistant Medical; Family Provider Family Medicine
DX: R10.32 Left lower quadrant pain (principal); R11.0 Nausea
CPT/HCPCS: 36415; 74177; 80053; 81003; 82272; 83690; 85025; 96374; 99284; J2405

== ENCOUNTER → 2024-08-13 18:59 | Outpatient (CLI) | payer OTHER, MEDICAID, SELFPAY ==
--- NOTE | 2024-08-13 | DI.MRI.S_ITS ---
PROCEDURE: MR LUMBAR SPINE WO CON INDICATIONS: LOW BACK PAIN TECHNIQUE: Noncontrast sagittal T1 spin echo and T2 fast echo, sagittal STIR, and T2 fast spin echo through the lumbar spine. In cases with scoliosis, additional coronal T2 fast spin echo may be performed. COMPARISON: None. FINDINGS: Image quality: Excellent. Alignment and Curvature: There is normal bony alignment. Bone Marrow: Marrow is of normal overall signal. No acute vertebral body compression fractures. Spinal Cord: Conus medullaris terminates at the L1 level. Visualized cord demonstrates normal signal and size. Paraspinous Soft Tissues: No paravertebral masses. T12-L1: Normal appearance. L1-L2: Normal appearance. L2-L3: Normal appearance. L3-L4: Disc bulge. Mild central stenosis. No foraminal stenosis. L4-L5: Disc bulge. Mild central stenosis. Arthropathy. Moderate right and mild left foraminal stenosis L5-S1: Disc bulge. No central stenosis. Arthropathy. Moderate right and left foraminal stenosis. IMPRESSION: Multilevel degenerative disc disease and arthropathy results in varying degrees of central and foraminal stenosis including moderate right foraminal stenosis L4-5 and L5-S1 Approved by: Doc Ray M.D. on 08/14/2024 at 17:03
== END ==
LOC: MRI 19:05
PROVIDERS: Family Provider Family Medicine; Visit Provider Physical Medicine & Rehabilitation
DX: M51.16 Intervertebral disc disorders with radiculopathy, lumbar region (principal); M51.17 Intervertebral disc disorders with radiculopathy, lumbosacral region; M47.26 Other spondylosis with radiculopathy, lumbar region; M47.27 Other spondylosis with radiculopathy, lumbosacral region; M48.061 Spinal stenosis, lumbar region without neurogenic claudication; M48.07 Spinal stenosis, lumbosacral region
CPT/HCPCS: 72148

== ENCOUNTER 2024-09-08 20:25 | Emergency (ER) | payer OTHER, SELFPAY ==
[2024-09-08 20:33] VITALS: BP 133/79; PULSE 73; RESP 22; TEMP 36.8; O2SAT 99; BMI 27.8
--- NOTE | 2024-09-08 20:47 | EKG_ITS ---
[address] [address] Test Date: 2024-09-08 Pat Name: Stevie Benson Department: Room: Gender: Male Prepress Technician: DAVE MARLENE : 1980 Requested By: Order Number: [id number] Reading MD: Reginald Lo Measurements Intervals [place] Rate: 84 P: 71 TN: 176 QRS: 200 QRSD: 114 T: 48 QT: 390 QTc: 460 Interpretive Statements Normal sinus rhythm Right superior axis deviation Electronically Signed On 09-09-2024 11:20:14 PST by Reginald Lo
--- NOTE | 2024-09-08 21:30 | PC.NURSE ---
Pt reports urinary urge; pt states he does not feel like he is emptying his bladder completely and he is feeling pressure be pushed up his body to his chest and left arm. Pt states pain radiates to his left arm and chest upon palpation of lower abdomen. No increase pressure to chest or left arm upon direct palpation. Urine light yellow and clear. Pt states he has been having this issue for 19 years and has seen multiple specialists including urology. Post void bladder scan shows 159cc. Pt states rubbing alcohol has been the only thing to help his shakes. Pt able to ambulate w/o assistance. Denies any loss of bladder or bowel. Respirations regular and unlabored.
[2024-09-08 21:40] VITALS: PULSE 66; O2SAT 95
[2024-09-08 22:00] VITALS: PULSE 62; O2SAT 98
[2024-09-08 22:30] VITALS: PULSE 61; RESP 18; O2SAT 98
[2024-09-08 23:00] VITALS: PULSE 66; O2SAT 99
[2024-09-08 23:30] VITALS: PULSE 61; RESP 18; O2SAT 98
--- NOTE | 2024-09-08 23:31 | DI.CT.S_ITS ---
PROCEDURE: CT ABDOMEN PELVIS W CON INDICATIONS: left lower quad pain TECHNIQUE: After the administration of intravenous contrast, axial sections acquired from the lung bases to the pubic symphysis. Coronal and sagittal reformats were performed. For radiation dose reduction, the following was used: automated exposure control, adjustment of mA and/or kV according to patient size. COMPARISON: [facility], CT, CT ABDOMEN PELVIS W CON, 08/04/2022, 16:43. FINDINGS: Image quality: Diagnostic. Lower Chest: No significant findings. ABDOMEN: Liver: No solid mass. Hepatic steatosis. Liver measures 18 cm. Gallbladder: Removed. Biliary ducts: No biliary dilation. Pancreas: No ductal dilation. Spleen: Size is within normal limits. Adrenal Glands: No adrenal nodules. Kidneys and Ureters: No hydronephrosis. No solid mass. No complex renal cystic lesion which requires follow up. Stomach and Bowel: No bowel obstruction. The left: Is thickened and incompletely distended. No significant inflammatory change.. Hiatal hernia. Peritoneum: No abnormal intraperitoneal fluid. No free air. Ventral Wall: No significant ventral hernia. Abdominal Nodes: No retroperitoneal or mesenteric adenopathy by size criteria. Vessels: Aorta and inferior vena cava are normal in size. PELVIS: Pelvic Organs: Unremarkable. Bladder: No bladder wall thickening, accounting for underdistention. Pelvic Nodes: No enlarged lymph nodes. Miscellaneous: No inguinal hernias are seen. Bones: No aggressive osseous abnormality. Left femoral fixation. IMPRESSION: Diffuse thickening of the left colon. Although incompletely distended, developing inflammation should be considered as appearance can be seen with inflammatory bowel disease. Dictated by: Melisa Nuñez M.D. on 09/09/2024 at 0:51 Approved by: Melisa Nuñez M.D. on 09/09/2024 at 0:53
--- NOTE | 2024-09-08 23:39 | ED_ITS ---
HPI - Abdominal Pain General Chief Complaint: Urogenital-Male Stated Complaint: unable to urinate Time Seen by Provider: 09/08/24 23:37 Source: patient Mode of arrival: Ambulatory History of Present Illness HPI narrative: Patient is a 44-year-old male with history of back issues, having urinary issues. He has been seen at [facility] 3 times this month for the same. He reports intense pain in his suprapubic area all going all the way up into his chest. Has had multiple visits with blood work and chest x-ray. He has been seen by Urology sounds like an ongoing problem. Now he is really having some left lower quadrant pain which he says that is where his pain has been. I do not see that there has been imaging done for that. He has no fever chills nausea or vomiting. He says that the pain goes all the way into his jaw in his chest. He has worsening back pain. He had an MRI back in 08/13/2024 here which did show L3-L4 disc bulge mild central stenosis L4-L5 disc bulge mild central stenosis, L5-S1 disc bulge with no central stenosis. No shortness of breath or fever feels like he can not empty his bladder bladder scan shows 156 cc Related Data Home Medications Medication Instructions Recorded Confirmed fluconazole 150 mg tablet 150 mg PO DAILY 12/05/19 12/05/19 omeprazole PO 12/05/19 12/05/19 tamsulosin PO 12/05/19 12/05/19 valacyclovir PO 12/05/19 12/05/19 Previous Rx's Medication Instructions Recorded hydrocodone 5 mg-acetaminophen 325 1 tab PO BID PRN pain #5 tabs 04/27/20 mg tablet (Secretary) prednisone 20 mg tablet 40 mg (2 x 20 mg) PO DAILY #10 tabs 09/09/24 Allergies Allergy/AdvReac Type Severity Reaction Status Date / Time Iodinated Contrast Media AdvReac Severe vomiting Verified 08/04/22 12:02 Patient History Surgical History H/O inguinal hernia repair Social History Smoking Status: Unknown if ever smoked alcohol intake: former substance use type: marijuana Smoking Status: Unknown if ever smoked alcohol intake frequency: holidays/special occasions only Exam Initial Vital Signs Initial Vital Signs: Vital Signs Temperature 98.2 F 09/08/24 20:33 Pulse Rate 73 09/08/24 20:33 Respiratory Rate 22 09/08/24 20:33 Blood Pressure 133/79 09/08/24 20:33 Pulse Oximetry 99 09/08/24 20:33 Oxygen Delivery Method Room Air 09/08/24 20:33 GENERAL: Anxious 44-year-old male appears that he can not get comfortable HEENT: Head atraumatic,EOMI, pupils reactive, face symmetric, moist mucous membranes CARDIOVASCULAR: Regular rate and rhythm without murmurs, rubs or gallops. RESPIRATORY: Breath sounds equal bilaterally, no wheezes rales or rhonchi. ABDOMEN: Soft, tender left lower quadrant no guarding or rebound mild tenderness suprapubic area : No CVA tenderness EXTREMITIES: Normal range of motion, no clubbing or edema. Neurovascularly intact NEUROLOGICAL: Alert and oriented x4.Normal gait and speech. Cranial nerves II through XII grossly intact. SKIN: Warm, dry, no laceration, no petechiae, no rashes or lesions. Course Orders Ordered: ED Orders 09/08/24 20:42 EKG-12 Lead Stat 09/08/24 23:31 CT abdomen pelvis w con Stat 09/08/24 23:52 CBC Auto Diff [Complete Blood Count AUTO DIFF] Stat CMP [Comprehensive Metabolic Panel] Stat Lipase Stat Troponin & CK Cardiac Panel Stat Discontinued Medications Ketorolac Tromethamine (Ketorolac 30 Mg/Ml Vial) 15 mg IV NOW ONE Stop: 09/08/24 23:32 Last Admin: 09/08/24 23:55 Dose: 15 mg Documented By: CHENTE Methylprednisolone (Methylprednisolone 125 Mg/2 Ml Vial) 125 mg IV NOW ONE Stop: 09/09/24 01:39 Last Admin: 09/09/24 01:46 Dose: 125 mg Documented By: AYLEEN Ondansetron HCl (Ondansetron 4 Mg/2 Ml Inj) 4 mg IV NOW ONE Stop: 09/08/24 23:59 Last Admin: 09/09/24 00:03 Dose: 4 mg Documented By: CHENTE Vital Signs Vital signs: Vital Signs - 8 hr 09/08/24 21:40 09/08/24 22:00 09/08/24 22:30 Pulse Rate 66 62 61 Respiratory Rate 18 Blood Pressure Pulse Oximetry 95 98 98 Oxygen Delivery Method 09/08/24 23:00 09/08/24 23:30 09/09/24 00:00 Pulse Rate 66 61 86 Respiratory Rate 18 Blood Pressure Pulse Oximetry 99 98 99 Oxygen Delivery Method 09/09/24 00:30 09/09/24 01:00 09/09/24 01:30 Pulse Rate 65 70 64 Respiratory Rate 18 Blood Pressure Pulse Oximetry 96 98 98 Oxygen Delivery Method 09/09/24 01:51 Pulse Rate 66 Respiratory Rate 18 Blood Pressure 137/83 Pulse Oximetry 98 Oxygen Delivery Method Room Air MDM - Abdominal Pain Lab Data 09/08/24 23:52 09/08/24 23:52 Labs: Lab Results 09/08/24 Range/Units 23:52 WBC 8.7 (4.5-11.0) X10^3/uL RBC 5.37 (4.5-5.9) X10^6/uL Hgb 15.7 (13.5-17.5) g/dL Hct 46.2 (41-53) % MCV 86.1 (80-100) fL MCH 29.3 (26-34) PG MCHC 34.1 (30-36) % RDW 13.6 (11.6-14.8) % Plt Count 266 (150-400) X10^3/uL Neut % (Auto) 51.2 (50-75) % Lymph % (Auto) 39.5 (25-40) % [place] % (Auto) 6.3 (3-14) % Eos % (Auto) 2.3 (2-4) % Baso % (Auto) 0.7 (0-2) % Neut # (Auto) 4400 (1061-6179) /uL Lymph # (Auto) 3400 (8476-7131) /uL [place] # (Auto) 600 (0-900) /uL Eos # (Auto) 200 (0-450) /uL Baso # (Auto) 100 (0-100) /uL Sodium 135 L (137-145) mmol/L Potassium 3.4 (3.4-5.1) mmol/L Chloride 106 (98-107) mmol/L Carbon Dioxide 23 (22-32) mmol/L BUN 15 (9-20) mg/dL Creatinine 0.85 (0.66-1.25) mg/dL Estimated GFR > 60 (>60) mL/min BUN/Creatinine Ratio 17.6 (6-22) Glucose 93 (70-100) mg/dL Calcium 9.2 (8.4-10.2) mg/dL Total Bilirubin 1.1 (0.2-1.3) mg/dL AST 31 (17-59) IU/L ALT 20 (<50) IU/L Alkaline Phosphatase 57 (38-126) U/L Total Creatine Kinase 139 (55-170) U/L Troponin I < 0.012 (0.01-0.034) ng/mL Total Protein 6.9 (6.3-8.2) g/dL Albumin 4.1 (3.5-5.0) g/dL Globulin 2.8 (1.7-4.1) g/dL Albumin/Globulin Ratio 1.5 (1.0-2.8) Lipase 39 (23-300) U/L Point of care testing: Urine Dip Bedside Urine Glucose Negative Bedside Urine Bilirubin - Negative Bedside Urine Ketone - Negative Urine Specific [place] 1.000 Bedside Urine Occult Blood - Negative Bedside Urine pH 6.0 Bedside Urine Protein - Negative Bedside Urine Urobilinogen - Negative Bedside Urine Nitrite - Negative Bedside Urine Leukocytes - Negative Esterase Imaging Data CT scan - abdomen/pelvis: Radiologist's Impression: PROCEDURE: CT ABDOMEN PELVIS W CON INDICATIONS: left lower quad pain TECHNIQUE: After the administration of intravenous contrast, axial sections acquired from the lung bases to the pubic symphysis. Coronal and sagittal reformats were performed. For radiation dose reduction, the following was used: automated exposure control, adjustment of mA and/or kV according to patient size. COMPARISON: [facility], CT, CT ABDOMEN PELVIS W CON, 08/04/2022, 16:43. FINDINGS: Image quality: Diagnostic. Lower Chest: No significant findings. ABDOMEN: Liver: No solid mass. Hepatic steatosis. Liver measures 18 cm. Gallbladder: Removed. Biliary ducts: No biliary dilation. Pancreas: No ductal dilation. Spleen: Size is within normal limits. Adrenal Glands: No adrenal nodules. Kidneys and Ureters: No hydronephrosis. No solid mass. No complex renal cystic lesion which requires follow up. Stomach and Bowel: No bowel obstruction. The left: Is thickened and incompletely distended. No significant inflammatory change.. Hiatal hernia. Peritoneum: No abnormal intraperitoneal fluid. No free air. Ventral Wall: No significant ventral hernia. Abdominal Nodes: No retroperitoneal or mesenteric adenopathy by size criteria. Vessels: Aorta and inferior vena cava are normal in size. PELVIS: Pelvic Organs: Unremarkable. Bladder: No bladder wall thickening, accounting for underdistention. Pelvic Nodes: No enlarged lymph nodes. Miscellaneous: No inguinal hernias are seen. Bones: No aggressive osseous abnormality. Left femoral fixation. IMPRESSION: Diffuse thickening of the left colon. Although incompletely distended, developing inflammation should be considered as appearance can be seen with inflammatory bowel disease. Dictated by: Melisa Nuñez M.D. on 09/09/2024 at 0:51 ECG Data Attestation: I personally reviewed and interpreted this ECG as follows: Prior ECG tracings: available for review Interpretation: Normal sinus rhythm rate 84 TX interval 176 QRS 140 hearing through UC [address] changes no T-wave inversions MDM Narrative Medical decision making narrative: SYL CC: Abdominal pain Complicating co-morbidities: Chronic back issues Medical records reviewed: Records from [facility] ED visits from this month have been reviewed. Does not appear that he has had any sort of abdominal CT imaging he has had chest x-ray blood work each time all blood work has the within normal limits, last visit was on September 02 he complains of suprapubic pain radiates into his left quadrant of his chest and down his left leg similar to his symptoms today Differential considered: Urinary red inches and diverticulitis appendicitis bowel obstruction in acute coronary syndrome Exam documented above, pertinent findings include: Patient 44 year old male he is quite tender in his left lower quadrant he is moving all of his extremities well. He seems slightly anxious no evidence of rash fluid overload Lab Test results independently reviewed as above. Pertinent findings: WBC 8.7 hemoglobin 15.5 hematocrit 46.2 platelets 266 Sodium 135 potassium 3.4 chloride 106 carbon dioxide 23 BUN 15 creatinine 0.85 glucose 93 Bilirubin 1.1 AST 31 ALT 20 alk-phos 57 Trop negative CPK 139 Urine negative Independently reviewed EKG as above no ischemia Imaging studies independently reviewed: CT shows diffuse thickening left colon suggestive of inflammatory bowel disease Consultations: none Treatments: Toradol Solu-Medrol Zofran Re-evaluations: Overall feeling better Discussion: Patient 44-year-old male presenting today with left lower quadrant pain. This is his 4th ED visit month. CT does show some inflammation of his left colon he has no leukocytosis. He was worried about cauda equina however he has an MRI a couple weeks ago but does not show any significant central canal narrowing he still able to move his legs he is tender in his left lower abdomen which is consistent where his CT findings are. I think this correlates this is why his abdomen hurts. Unclear why he is having some any urinary symptoms he has been complaining of this ongoing every visit he has been followed by Urology. Reports pain that goes all way up into his chest. It has not cardiac in nature he has no EKGs changes or negative troponin Patient was concern about cauda equina syndrome. At this time I think highly unlikely MRI does not show any significant stenosis it was done less than a month ago he has no evidence of urinary retention on CT or bladder scan no evidence of a UTI no urinary incontinence sensation in lower extremities intact Discharge Plan Departure Patient Disposition: Home Clinical Impression: Colitis Instructions: DI for Colitis Activity Restrictions/Additional Instructions: *You have been diagnosed with colitis *What to do: You need a colonoscopy for biopsy and further investigation. We will try a course of prednisone to see if it decreases the inflammation and pain you are experiencing in your abdomen blood work and urine are reassuring. Please follow-up with urology *Continue to take medications as directed Prednisone 40 mg once a day for 5 days *Follow up with your primary care provider in 2-3 days or call [phone] *Return to ER if you should have any new, worsening or concerning symptoms Prescriptions: New prednisone 20 mg tablet 40 mg PO DAILY Qty: 10 0RF No Action omeprazole PO valacyclovir PO fluconazole 150 mg tablet 150 mg PO DAILY tamsulosin PO hydrocodone-acetaminophen [Secretary] 5-325 mg tablet 1 tab PO BID PRN (Reason: pain) Qty: 5 0RF Referrals: Miscellaneous,Doctor, [Primary Care Provider] - Stand Alone Forms: Patient Portal/API/Survey
[2024-09-08] MEDS: KETOROLAC 30 MG/ML VIAL 15 MG IV (23:55)
[2024-09-09] VITALS: PULSE 86; O2SAT 99
[2024-09-09 00:01] LABS: Add Manual Diff / Slide Review NO; Basophils Absolute Auto 100 /uL (0-100); Basophils Percent Auto 0.7 % (0-2); Eosinophils Absolute Auto 200 /uL (0-450); Eosinophils Percent Auto 2.3 % (2-4); Hematocrit 46.2 % (41-53); Hemoglobin 15.7 g/dL (13.5-17.5); Lymphocytes Absolute Auto 3400 /uL (1100-4500); Lymphocytes Percent Auto 39.5 % (25-40); Mean Corpuscular HGB Conc 34.1 % (30-36); Mean Corpuscular Hemoglobin 29.3 PG (26-34); Mean Corpuscular Volume 86.1 fL (80-100); Monocytes Absolute Auto 600 /uL (0-900); Monocytes Percent Auto 6.3 % (3-14); Neutrophils Absolute Auto 4400 /uL (1500-7000); Neutrophils Percent Auto 51.2 % (50-75); Platelet Count 266 X10^3/uL (150-400); Red Blood Cell Count 5.37 X10^6/uL (4.5-5.9); Red Cell Distribution Width 13.6 % (11.6-14.8); White Blood Cell Count 8.7 X10^3/uL (4.5-11.0)
[2024-09-09] MEDS: ONDANSETRON 4 MG/2 ML INJ IV (00:03)
--- NOTE | 2024-09-09 00:09 | PC.NURSE ---
Pt reports pt only needs antinausea medicine for CT. Denies SOB, hives, etc. with IV contrast.
[2024-09-09 00:12] LABS: Alanine Aminotransferase 20 IU/L (<50); Albumin 4.1 g/dL (3.5-5.0); Albumin Globulin Ratio 1.5 (1.0-2.8); Alkaline Phosphatase 57 U/L (38-126); Aspartate Aminotransferase 31 IU/L (17-59); BUN Creatinine Ratio 17.6 (6-22); Bilirubin Total 1.1 mg/dL (0.2-1.3); Blood Urea Nitrogen 15 mg/dL (9-20); Calcium 9.2 mg/dL (8.4-10.2); Carbon Dioxide 23 mmol/L (22-32); Chloride 106 mmol/L (98-107); Creatine Kinase 139 U/L (55-170); Estimated Glomerular Filt Rate > 60 mL/min (>60); Globulin 2.8 g/dL (1.7-4.1); Glucose 93 mg/dL (70-100); HEMOLYSIS 16 (0-50); Lipase 39 U/L (23-300); Potassium 3.4 mmol/L (3.4-5.1); Sodium 135 mmol/L (137-145); Total Protein 6.9 g/dL (6.3-8.2)
[2024-09-09 00:24] LABS: Troponin I < 0.012 ng/mL (0.01-0.034)
[2024-09-09 00:30] VITALS: PULSE 65; O2SAT 96
[2024-09-09 01:00] VITALS: PULSE 70; O2SAT 98
[2024-09-09 01:30] VITALS: PULSE 64; RESP 18; O2SAT 98
[2024-09-09] MEDS: methylPREDNISolone 125 MG/2 ML VIAL IV (01:46)
[2024-09-09 01:51] VITALS: BP 137/83; PULSE 66; RESP 18; O2SAT 98
== END 2024-09-09 01:54 | disposition home or self-care (01) ==
PROVIDERS: Emergency Provider Emergency Medicine; Family Provider Family Medicine
DX: K52.9 Noninfective gastroenteritis and colitis, unspecified (principal)
CPT/HCPCS: 51798; 74177; 80053; 81003; 82550; 83690; 84484; 85025; 93005; 96374; 96375; 99284; J1885; J2405; J2919; Q9967

== ENCOUNTER 2024-09-21 12:18 | Emergency (ER) | payer OTHER, SELFPAY ==
[2024-09-21 12:28] VITALS: BP 132/74; PULSE 64; RESP 18; TEMP 36.4; O2SAT 100; BMI 25.0
--- NOTE | 2024-09-21 12:47 | EKG_ITS ---
[place] [id number] [place] [id number] Test Date: 2024-09-21 Pat Name: Stevie Benson Department: [facility] Room: Gender: Male Credit Officer: KEVIN : 1980 Requested By: Order Number: [id number] Reading MD: Reginald Lo Measurements Intervals [place] Rate: 67 P: 69 MN: 182 QRS: -48 QRSD: 118 T: 46 QT: 402 QTc: 424 Interpretive Statements Normal sinus rhythm Left axis deviation Nonspecific intraventricular conduction delay Electronically Signed On 09-21-2024 17:07:42 PST by Reginald Lo
[2024-09-21 12:56] LABS: Add Manual Diff / Slide Review NO; Basophils Absolute Auto 0 /uL (0-100); Basophils Percent Auto 0.6 % (0-2); Eosinophils Absolute Auto 200 /uL (0-450); Eosinophils Percent Auto 2.1 % (2-4); Hematocrit 49.3 % (41-53); Hemoglobin 16.7 g/dL (13.5-17.5); Lymphocytes Absolute Auto 2500 /uL (1100-4500); Lymphocytes Percent Auto 33.9 % (25-40); Mean Corpuscular HGB Conc 33.8 % (30-36); Mean Corpuscular Hemoglobin 29.2 PG (26-34); Mean Corpuscular Volume 86.5 fL (80-100); Monocytes Absolute Auto 600 /uL (0-900); Monocytes Percent Auto 7.9 % (3-14); Neutrophils Absolute Auto 4100 /uL (1500-7000); Neutrophils Percent Auto 55.5 % (50-75); Platelet Count 262 X10^3/uL (150-400); Red Cell Distribution Width 13.5 % (11.6-14.8); White Blood Cell Count 7.4 X10^3/uL (4.5-11.0)
[2024-09-21 13:02] LABS: Alanine Aminotransferase 24 IU/L (<50); Albumin 4.9 g/dL (3.5-5.0); Albumin Globulin Ratio 1.7 (1.0-2.8); Alkaline Phosphatase 64 U/L (38-126); Aspartate Aminotransferase 35 IU/L (17-59); Bilirubin Total 1.2 mg/dL (0.2-1.3); Blood Urea Nitrogen 10 mg/dL (9-20); Calcium 9.5 mg/dL (8.4-10.2); Carbon Dioxide 28 mmol/L (22-32); Chloride 102 mmol/L (98-107); Estimated Glomerular Filt Rate > 60 mL/min (>60); Globulin 2.9 g/dL (1.7-4.1); Glucose 88 mg/dL (70-100); HEMOLYSIS < 15 (0-50); Lipase 87 U/L (23-300); Potassium 3.4 mmol/L (3.4-5.1); Sodium 138 mmol/L (137-145); Total Protein 7.8 g/dL (6.3-8.2)
[2024-09-21 15:07] VITALS: BP 121/73; PULSE 60; O2SAT 99
[2024-09-21 15:30] VITALS: BP 105/75; PULSE 85
--- NOTE | 2024-09-21 15:57 | ED.GENADULT ---
HPI - General Adult General Chief complaint: Abdominal Pain Stated complaint: pain left abd and chest Time Seen by Provider: 09/21/24 15:10 Source: patient Mode of arrival: Ambulatory History of Present Illness HPI narrative: Patient was a 44-year-old male who is here for evaluation of multiple symptoms to include left-sided abdominal pain, difficulty urinating at times, shakiness, pain that radiates up his left side into his left shoulder in the left side of his neck in the left side of his head. Patient currently is on Cipro and Flagyl for was presumed to be diverticulitis it was prescribed by an outside facility. He occasionally has a episodes of dysuria. He was had discomfort in the left side of his abdomen for several weeks. He was scheduled to see Gastroenterology but that is not for several weeks out. He was concerned about an entrapment of the nerves from his lumbar spine in the abdominal wall musculature causing his issues with urinating, his bowel issues, and the discomfort radiating to left side of his neck. He was here requesting an abdominal MRI. Related Data Home Medications Medication Instructions Recorded Confirmed fluconazole 150 mg tablet 150 mg PO DAILY 12/05/19 12/05/19 omeprazole PO 12/05/19 12/05/19 tamsulosin PO 12/05/19 12/05/19 valacyclovir PO 12/05/19 12/05/19 Previous Rx's Medication Instructions Recorded hydrocodone 5 mg-acetaminophen 325 1 tab PO BID PRN pain #5 tabs 04/27/ mg tablet ([place]) prednisone 20 mg tablet 40 mg (2 x 20 mg) PO DAILY #10 tabs 09/09/24 Allergies Allergy/AdvReac Type Severity Reaction Status Date / Time Iodinated Contrast Media AdvReac Severe vomiting Verified 08/04/22 12:02 Review of Systems Review of Systems ROS Unobtainable: All systems reviewed & are unremarkable except as noted in HPI and below Cardiovascular Cardiovascular: Reports system reviewed and no additional complaints, except as documented Respiratory Respiratory: Reports system reviewed and no additional complaints, except as documented Gastrointestinal Gastrointestinal: Reports system reviewed and no additional complaints, except as documented Genitourinary Genitourinary: Reports system reviewed and no additional complaints, except as documented Integumentary/Breasts Skin/Breast: Reports system reviewed and no additional complaints, except as documented Patient History Surgical History H/O inguinal hernia repair Social History Smoking Status: Never smoker alcohol intake: former substance use type: marijuana Smoking Status: Never smoker alcohol intake frequency: holidays/special occasions only Exam Initial Vital Signs Initial Vital Signs: Vital Signs Temperature 97.6 F 09/21/24 12:28 Pulse Rate 64 09/21/24 12:28 Respiratory Rate 18 09/21/24 12:28 Blood Pressure 132/74 09/21/24 12:28 Pulse Oximetry 100 09/21/24 12:28 Oxygen Delivery Method Room Air 09/21/24 12:28 Const General: cooperative and No ill appearing HENMT Head: normal to inspection and normocephalic Resp Effort & Inspection: normal respiratory effort Cardio Rate: regular rate GI Inspection: normal to inspection and non-distended Palpation: soft, No firm and No guarding Skin General: no rashes or lesions noted Course Orders Ordered: ED Orders 09/21/24 12:32 EKG-12 Lead Stat 09/21/24 12:45 Complete Blood Count AUTO DIFF Stat Comprehensive Metabolic Panel Stat Lipase Stat Discontinued Medications Ondansetron HCl (Ondansetron 4 Mg/2 Ml Inj) 4 mg IV NOW PRN PRN Reason: Nausea And Vomiting Ondansetron HCl (Ondansetron 4 Mg Odt) 4 mg PO NOW PRN PRN Reason: Nausea And Vomiting Vital Signs Vital signs: Vital Signs - 8 hr 09/21/24 12:28 09/21/24 15:07 09/21/24 15:07 Temperature 97.6 F Pulse Rate 64 60 Respiratory Rate 18 Blood Pressure 132/74 121/73 Pulse Oximetry 100 99 Oxygen Delivery Method Room Air 09/21/24 15:30 09/21/24 15:30 Temperature Pulse Rate 85 Respiratory Rate Blood Pressure 105/75 Pulse Oximetry Oxygen Delivery Method Medical Decision Making Medical Records Medical records reviewed: Yes I reviewed the patient's medical records. Lab Data Lab results reviewed: Yes I reviewed the patient's lab results. 09/21/24 12:45 09/21/24 12:45 Labs: Lab Results 09/21/24 Range/Units 12:45 WBC 7.4 (4.5-11.0) X10^3/uL RBC 5.70 (4.5-5.9) X10^6/uL Hgb 16.7 (13.5-17.5) g/dL Hct 49.3 (41-53) % MCV 86.5 (80-100) fL MCH 29.2 (26-34) PG MCHC 33.8 (30-36) % RDW 13.5 (11.6-14.8) % Plt Count 262 (150-400) X10^3/uL Neut % (Auto) 55.5 (50-75) % Lymph % (Auto) 33.9 (25-40) % [place] % (Auto) 7.9 (3-14) % Eos % (Auto) 2.1 (2-4) % Baso % (Auto) 0.6 (0-2) % Neut # (Auto) 4100 (2713-8840) /uL Lymph # (Auto) 2500 (7229-4504) /uL [place] # (Auto) 600 (0-900) /uL Eos # (Auto) 200 (0-450) /uL Baso # (Auto) 0 (0-100) /uL Sodium 138 (137-145) mmol/L Potassium 3.4 (3.4-5.1) mmol/L Chloride 102 (98-107) mmol/L Carbon Dioxide 28 (22-32) mmol/L BUN 10 (9-20) mg/dL Creatinine 0.91 (0.66-1.25) mg/dL Estimated GFR > 60 (>60) mL/min BUN/Creatinine Ratio 11.0 (6-22) Glucose 88 (70-100) mg/dL Calcium 9.5 (8.4-10.2) mg/dL Total Bilirubin 1.2 (0.2-1.3) mg/dL AST 35 (17-59) IU/L ALT 24 (<50) IU/L Alkaline Phosphatase 64 (38-126) U/L Total Protein 7.8 (6.3-8.2) g/dL Albumin 4.9 (3.5-5.0) g/dL Globulin 2.9 (1.7-4.1) g/dL Albumin/Globulin Ratio 1.7 (1.0-2.8) Lipase 87 (23-300) U/L Urine Dip Bedside Urine Glucose Negative Bedside Urine Bilirubin - Negative Bedside Urine Ketone - Negative Urine Specific [place] 1 Bedside Urine Occult Blood - Negative Bedside Urine pH 7.5 Bedside Urine Protein - Negative Bedside Urine Urobilinogen - Negative Bedside Urine Nitrite - Negative Bedside Urine Leukocytes - Negative Esterase Point of care testing: Urine Dip Bedside Urine Glucose Negative Bedside Urine Bilirubin - Negative Bedside Urine Ketone - Negative Urine Specific [place] 1 Bedside Urine Occult Blood - Negative Bedside Urine pH 7.5 Bedside Urine Protein - Negative Bedside Urine Urobilinogen - Negative Bedside Urine Nitrite - Negative Bedside Urine Leukocytes - Negative Esterase ECG Data Attestation: I personally reviewed and interpreted this ECG as follows: Interpretation: Sinus rhythm Ventricular rate is 67 Left axis deviation QRS is [address] T wave changes MDM Narrative Medical decision making narrative: Patient was had a fairly extensive workup of his left-sided abdominal discomfort. He was currently on antibiotics for what is presumed to be diverticulitis. I am unable to obtain an abdominal MRI today. I am unsure as to whether or not this is even warranted given his presentation today. There was no indication to change his current antibiotics. No fevers. Labs unremarkable. EKGs unremarkable. I do think that he would benefit from follow-up with Gastroenterology and may need a colonoscopy and endoscopy. He was scheduled for this. Offered a testicular ultrasound/renal ultrasound to complete the workup to make sure there was no other pathology but the patient declined. Patient can follow up with his primary care provider. Discharge Plan Departure Patient Disposition: Home Clinical Impression: Abdominal pain Instructions: DI for Abdominal Pain-Adult Activity Restrictions/Additional Instructions: Recommend that you continue to take all of your medications as directed. Keep all of your scheduled medical appointments. Contact your primary care doctor for a follow-up. Return to the emergency department for new or worsening symptoms. Prescriptions: No Action omeprazole PO valacyclovir PO fluconazole 150 mg tablet 150 mg PO DAILY tamsulosin PO prednisone 20 mg tablet 40 mg PO DAILY Qty: 10 0RF hydrocodone-acetaminophen [[place]] 5-325 mg tablet 1 tab PO BID PRN (Reason: pain) Qty: 5 0RF Referrals: Miscellaneous,DoctorMD [Primary Care Provider] - Stand Alone Forms: Patient Portal/API/Survey
== END 2024-09-21 16:02 | disposition home or self-care (01) ==
PROVIDERS: Emergency Provider Emergency Medicine; Family Provider Family Medicine
DX: R10.9 Unspecified abdominal pain (principal); R39.198 Other difficulties with micturition; M25.512 Pain in left shoulder; M54.2 Cervicalgia; R51.9 Headache, unspecified
CPT/HCPCS: 36415; 80053; 81003; 83690; 85025; 93005; 99283; 99284

== ENCOUNTER 2024-10-03 02:56 | Emergency (ER) | payer OTHER, SELFPAY ==
[2024-10-03 03:36] VITALS: BP 115/69; PULSE 59; RESP 18; O2SAT 100
[2024-10-03] MEDS: LIDOCAINE 2% (GLYDO) 6 ML GEL TOP (03:47)
[2024-10-03 03:57] LABS: Appearance Urine UA CLEAR; Bilirubin Urine UA NEGATIVE (NEGATIVE); Color Urine UA YELLOW; Glucose Urine UA NEGATIVE (Negative); Ketones Urine UA NEGATIVE (NEGATIVE); Leukocyte Esterase Urine UA NEGATIVE (NEGATIVE); Nitrite Urine UA NEGATIVE (Negative); Occult Blood Urine UA NEGATIVE (Negative); Protein Urine UA NEGATIVE (Negative); Specific Gravity Urine UA <=1.005 (1.000-1.035); Urobilinogen Urine UA 0.2 E.U./dL (0.2)
[2024-10-03 04:00] VITALS: BP 92/61; PULSE 63; RESP 18; O2SAT 97
--- NOTE | 2024-10-03 04:12 | ED.MALEGU ---
HPI - Male Genitourinary General Chief complaint: Urogenital-Male Stated complaint: cant urinate Time Seen by Provider: 10/03/24 03:35 Source: patient Mode of arrival: Ambulatory Limitations: no limitations History of Present Illness HPI Narrative: 44-year-old male known history of urinary retention is following with Urology through [place]. Patient states he has had a visit with them has not appointment this Monday to be evaluated and they were planning on giving him what sounds like straight catheters. Patient states he normally has nocturia and has difficulty with urination overnight but was not able to urinate this evening. He developed increasing abdominal pain which has significantly improved after having a catheter placed. Patient denies any other symptoms currently. No other recent GI issues. States he was on Flomax but did not tolerate it well so his urologist change him to oxybutynin. Patient states he was not on any other daily medications currently. Related Data Home Medications Medication Instructions Recorded Confirmed fluconazole 150 mg tablet 150 mg PO DAILY 12/05/19 12/05/19 omeprazole PO 12/05/19 12/05/19 tamsulosin PO 12/05/19 12/05/19 valacyclovir PO 12/05/19 12/05/19 Previous Rx's Medication Instructions Recorded hydrocodone 5 mg-acetaminophen 325 1 tab PO BID PRN pain #5 tabs 04/27/ mg tablet ([place]) prednisone 20 mg tablet 40 mg (2 x 20 mg) PO DAILY #10 tabs 09/09/24 Allergies Allergy/AdvReac Type Severity Reaction Status Date / Time Iodinated Contrast Media AdvReac Severe vomiting Verified 08/04/22 12:02 Review of Systems Review of Systems ROS Unobtainable: All systems reviewed & are unremarkable except as noted in HPI and below Patient History Surgical History H/O inguinal hernia repair Social History Smoking Status: Never smoker alcohol intake: former substance use type: marijuana Smoking Status: Never smoker alcohol intake frequency: holidays/special occasions only Exam Narrative Exam Narrative: GENERAL: Alert and oriented x three, male in mild distress HEENT: Head normocephalic, atraumatic, EOMI, pupils reactive, face symmetric, moist mucous membranes NECK: Supple, full range of motion CARDIOVASCULAR: Regular rate and rhythm without murmurs, rubs or gallops. RESPIRATORY: Breath sounds equal bilaterally, no wheezes rales or rhonchi. ABDOMEN: Soft, nontender. Normoactive bowel sounds all 4 quadrants. No guarding or rebound, rigidity, no mass : No CVA tenderness, Fitzpatrick catheter in place draining clear urine placed by nursing prior to my evaluation EXTREMITIES: Normal range of motion, no clubbing or edema. Neurovascularly intact NEUROLOGICAL: Cranial nerves II through XII grossly intact. Moving all extremities SKIN: Warm, dry, no petechiae, no rashes or lesions. Initial Vital Signs Initial Vital Signs: Vital Signs Pulse Rate 59 L 10/03/24 03:36 Respiratory Rate 18 10/03/24 03:36 Blood Pressure 115/69 10/03/24 03:36 Pulse Oximetry 100 10/03/24 03:36 Oxygen Delivery Method Room Air 10/03/24 03:36 Course Orders Ordered: ED Orders 10/03/24 03:45 UA Complete [Urinalysis and Microscopic] Stat Discontinued Medications Lidocaine HCl (Lidocaine 2% (Glydo) 6 Ml Gel) 6 ml TOP NOW ONE Stop: 10/03/24 03:24 Last Admin: 10/03/24 03:47 Dose: 6 ml Documented By: SVETLANA Vital Signs Vital signs: Vital Signs - 8 hr 10/03/24 03:36 10/03/24 04:00 10/03/24 04:30 Pulse Rate 59 L 63 61 Respiratory Rate 18 18 18 Blood Pressure 115/69 92/61 108/62 Pulse Oximetry 100 97 98 Oxygen Delivery Method Room Air Room Air MDM - Male Genitourinary Lab Data Labs: Lab Results 10/03/24 Range/Units 03:45 Urine Color Yellow Urine Appearance Clear Urine pH 7.0 (4.5-8.0) Ur Specific [place] <=1.005 (1.000-1.035) Urine Protein Negative (Negative) Urine Glucose (UA) Negative (Negative) g/dL Urine Ketones Negative (NEGATIVE) Urine Occult Blood Negative (Negative) Urine Nitrate Negative (Negative) Urine Bilirubin Negative (NEGATIVE) Urine Urobilinogen 0.2 (0.2) E.U./dL Ur Leukocyte Esterase Negative (NEGATIVE) Urine RBC None seen (0-5/HPF) Urine WBC None seen (0-5/HPF) Ur Squamous Epith Cells None seen (0-5/HPF) Urine Bacteria None seen (None) Ur Culture Indicated? Cult not indicated Vol Urine Centrifuged 10ml (spun) MDM Narrative Medical decision making narrative: UA negative, microscopy negative. Patient already has follow up tomorrow with Urology in [place] has seen them before there was a plan to give him straight catheters so we will leave Fitzpatrick catheter in place to follow-up. Patient is currently on oxybutynin and states he did not tolerate Flomax or tamsulosin before. Discharge Plan Departure Patient Disposition: Home Clinical Impression: Acute urinary retention Instructions: How to Care for Your Fitzpatrick Catheter -- Male Activity Restrictions/Additional Instructions: Follow up with your urology appointment this Monday the . Copy of your urinalysis is included. Continue your current home medications. Please return if you have fevers, new or worsening abdominal back or flank pain, vomiting, if you are catheter is not draining urine you have any bleeding or large blood clots or other new or concerning changes. Prescriptions: No Action omeprazole PO valacyclovir PO fluconazole 150 mg tablet 150 mg PO DAILY tamsulosin PO prednisone 20 mg tablet 40 mg PO DAILY Qty: 10 0RF hydrocodone-acetaminophen [[place]] 5-325 mg tablet 1 tab PO BID PRN (Reason: pain) Qty: 5 0RF Referrals: Miscellaneous,Doctor, MD [Primary Care Provider] - Stand Alone Forms: Patient Portal/API/Survey
[2024-10-03 04:13] LABS: Bacteria Urine None Seen; Culture Indicated Urine Cult Not Indicated; RBC Urine None Seen (0-5/HPF); Squamous Epithelial Cell Urine None Seen (0-5/HPF); Urine Volume 10mL (spun); WBC Urine None Seen (0-5/HPF)
[2024-10-03 04:30] VITALS: BP 108/62; PULSE 61; RESP 18; O2SAT 98
== END 2024-10-03 04:55 | disposition home or self-care (01) ==
PROVIDERS: Emergency Provider Emergency Medicine; Family Provider Family Medicine
DX: R33.8 Other retention of urine (principal); R10.9 Unspecified abdominal pain
CPT/HCPCS: 81001

== ENCOUNTER 2024-10-03 07:07 | Emergency (ER) | payer OTHER, SELFPAY ==
[2024-10-03 07:28] VITALS: BP 148/70; PULSE 120; RESP 18; TEMP 36.3; O2SAT 100
--- NOTE | 2024-10-03 08:10 | PC.NURSE ---
Pt reports he was leaking from catheter 3 times and felt the catheter was not draining so pt reports he yanked on the catheter at home and again when he was at hospital. Pt denies bleeding from penis. Pt states he was not paying attention to catheter care instructions last night.
--- NOTE | 2024-10-03 09:12 | PC.NURSE ---
0740 patient insistent on removing norton catheteer, removed catheter, will monitor output and post void residual.
--- NOTE | 2024-10-03 09:26 | ED.MALEGU ---
HPI - Male Genitourinary General Chief complaint: Urogenital-Male Stated complaint: catheter clogged Time Seen by Provider: 10/03/24 08:56 Source: patient and family Mode of arrival: Ambulatory History of Present Illness HPI Narrative: Patient is a 44-year-old male with history of urinary retention followed by Urology in [place] has an appointment with them tomorrow. Was seen evaluated here at 4:00 a.m. where he had urinary retention. Fitzpatrick catheter was placed however he reports that he tried to pull it out the balloon stopped it. He then started have leaking around the catheter and came back. Nursing staff has remove the catheter. He is urinated 500 cc of urine he is postvoid residual of 40. He had a urinalysis this morning which was negative and did not show any evidence of UTI. He does not take Flomax he did not tolerate it he is taking another medication. At this time he has no other complaints or issues and would like to go home Related Data Home Medications Medication Instructions Recorded Confirmed fluconazole 150 mg tablet 150 mg PO DAILY 12/05/19 12/05/19 omeprazole PO 12/05/19 12/05/19 tamsulosin PO 12/05/19 12/05/19 valacyclovir PO 12/05/19 12/05/19 Previous Rx's Medication Instructions Recorded hydrocodone 5 mg-acetaminophen 325 1 tab PO BID PRN pain #5 tabs 04/27/ mg tablet ([place]) prednisone 20 mg tablet 40 mg (2 x 20 mg) PO DAILY #10 tabs 09/09/24 Allergies Allergy/AdvReac Type Severity Reaction Status Date / Time Iodinated Contrast Media AdvReac Severe vomiting Verified 08/04/22 12:02 Patient History Surgical History H/O inguinal hernia repair Social History Smoking Status: Never smoker alcohol intake: former substance use type: marijuana Smoking Status: Never smoker alcohol intake frequency: holidays/special occasions only Exam Initial Vital Signs Initial Vital Signs: Vital Signs Temperature 97.4 F L 10/03/24 07:28 Pulse Rate 120 H 10/03/24 07:28 Respiratory Rate 18 10/03/24 07:28 Blood Pressure 148/70 H 10/03/24 07:28 Pulse Oximetry 100 10/03/24 07:28 Oxygen Delivery Method Room Air 10/03/24 07:28 GENERAL: Well-appearing, well-nourished and in no acute distress. CARDIOVASCULAR: peripheral pulses in tact, cap refill <2 sec RESPIRATORY: No respiratory distress, speaks in full sentences without difficulty ABDOMEN: Soft, nontender, no guarding or rebound EXTREMITIES: Normal range of motion, no clubbing or edema. Neurovascularly intact NEUROLOGICAL: Cranial nerves II through XII grossly intact. Normal gait and speech. SKIN: Warm, dry, no petechiae, no rashes or lesions. Course Vital Signs Vital signs: Vital Signs - 8 hr 10/03/24 07:28 Temperature 97.4 F L Pulse Rate 120 H Respiratory Rate 18 Blood Pressure 148/70 H Pulse Oximetry 100 Oxygen Delivery Method Room Air MDM - Male Genitourinary MDM Narrative Medical decision making narrative: 44-year-old male presenting today with Fitzpatrick catheter problem. It was placed just a few hours prior. He has no longer having urinary retention though I did discuss with him he is at risk for having further urinary retention. He is appointment with urology tomorrow. No evidence of UTI earlier today Discharge Plan Departure Patient Disposition: Home Clinical Impression: Acute urinary retention Activity Restrictions/Additional Instructions: *You have been diagnosed with urinary retention *What to do: At this time make sure that you are urinating. You are at risk of having urinary retention again and needing another Fitzpatrick catheter *Continue to take medications as directed *Follow up with your primary care provider in 2-3 days or call [phone] Follow up with Urology as scheduled tomorrow *Return to ER if you should have not able to urinate increased abdominal pain or any new, worsening or concerning symptoms Prescriptions: No Action omeprazole PO valacyclovir PO fluconazole 150 mg tablet 150 mg PO DAILY tamsulosin PO prednisone 20 mg tablet 40 mg PO DAILY Qty: 10 0RF hydrocodone-acetaminophen [[place]] 5-325 mg tablet 1 tab PO BID PRN (Reason: pain) Qty: 5 0RF Referrals: Miscellaneous,Doctor, [Primary Care Provider] - Stand Alone Forms: Patient Portal/API/Survey
[2024-10-03 09:36] VITALS: BP 109/67; PULSE 73; O2SAT 100
== END 2024-10-03 09:36 | disposition home or self-care (01) ==
PROVIDERS: Emergency Provider Emergency Medicine; Family Provider Family Medicine
DX: R33.8 Other retention of urine (principal); R10.9 Unspecified abdominal pain
CPT/HCPCS: 51702; 51798; 81001; 99282; 99283